=== PATIENT | female | born 2000 | race Caucasian/White ===

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

== ENCOUNTER 2020-06-03 14:14 | Emergency (ER) | payer SELFPAY ==
--- NOTE | 2020-06-03 15:20 | EDM.PDOC ---
ED HPI GENERAL MEDICAL PROBLEM - General Chief Complaint: Skin Complaint Stated Complaint: POSSIBLE GROIN CYST Time Seen by Provider: 06/03/20 15:13 Source of Information: Reports: Patient History Limitations: Reports: No Limitations - History of Present Illness INITIAL COMMENTS - FREE TEXT/NARRATIVE: HISTORY AND PHYSICAL: History of present illness: Patient is a 19-year-old female who presents to the emergency room with complaints of a "bump" to her right groin. She noticed today after getting out of the shower that she had a bump to the right groin that was mobile and mildly tender to touch. Patient denies any fever, chills, headache, change in vision, syncope or near syncope. Denies any chest pain, back pain, shortness of breath or cough. Denies any abdominal pain, nausea, vomiting, diarrhea, constipation or dysuria. Currently on her menstrual period, no concern for . Has not noted any blood in urine or stool. Patient has been eating and drinking vivien ropriately. Review of systems: As per history of present illness and below otherwise all systems reviewed and negative. Past medical history: As per history of present illness and as reviewed below otherwise noncontributory. Surgical history: As per history of present illness and as reviewed below otherwise noncontributory. Social history: See social history for further information Family history: As per history of present illness and as reviewed below otherwise noncontributory. Physical exam: General: Well developed and well nourished. Alert and orientated x 3. Nontoxic in appearance and in no acute distress. Vital signs are stable and have been reviewed by me. Nursing notes were reviewed. HEENT: Atraumatic, normocephalic, pupils equal and reactive bilaterally, negative for conjunctival pallor or scleral icterus, mucous membranes moist, TMs normal bilaterally, throat clear, neck supple, nontender, trachea midline. No drooling or trismus noted. No meningeal signs. No hot potato voice noted. Lungs: Clear to auscultation, breath sounds equal bilaterally, chest nontender. Normal work of breathing, no accessory muscles used. Heart: S1S2, regular rate and rhythm without overt murmur Abdomen: Soft, nondistended, nontender. Singular mildly enlarged lymph node noted to the right groin, skin intact without any erythema or soft tissue swelling or fluctuance. Lymph node is mobile. Skin: Intact, warm, dry. No lesions or rashes noted. Hematologic: No petechiae or purpra. Mucosa appropriate color and normal nail bed color and refill. Extremities: Moves all extremities per self without difficulty or deficits, negative for cords or calf pain. Neurovascular unremarkable. Neuro: Awake, alert, oriented. Cranial nerves II through XII unremarkable. Cerebellum unremarkable. Motor and sensory unremarkable throughout. Exam nonfocal. Psychiatric: Mood and affect are appropriate. Normal thought process. Answering questions appropriately. Notes: *This patient was seen and evaluated during the 2019 SARS-CoV-2 novel coronavirus pandemic period. Community viral transmission is ongoing at time of this encounter and the emergency department is operating under pandemic response procedures. Patient reports that in other than having noticed the enlarged lymph node she is asymptomatic. She has no complaints or concerns. The area in which the lymph node is enlarged has skin that is intact and no concern of infection. At this time I do not feel she needs any diagnostics. I have talked with the patient about today's findings, in addition to providing specific details for plan of care. Reassessment at the time of disposition demonstrates that the patient is in no acute distress. The patient is stable for discharge, counseling was provided and we discussed in great detail signs and symptoms that would prompt them to return to the Emergency Department. Medication, follow up and supportive care measures were reviewed and discussed. Voices understanding and is agreeable to plan of care. Denies any further questions or concerns at this time. Diagnostics: None Therapeutics: None Prescription: None Impression: Lymph node enlargement Plan: 1. You have an enlarged lymph node, which can be a completely normal body response. Continue to monitor the site for redness, fevers, or any other symptoms. 2. You can alternate Tylenol and ibuprofen as needed for pain and fever management. 3. We encourage you to follow up with your primary care provider in the next few days for re-evaluation and further care/management. 4. If your symptoms should worsen, new symptoms develop or any of the signs and symptoms we discussed should arise please return to the emergency room or call 911 (if needed). Definitive disposition and diagnosis as appropriate pending reevaluation and review of above. Right Groin Pain Score (Numeric/FACES): 5 - Related Data Allergies Allergy/AdvReac Type Severity Reaction Status Date / Time No Known Allergies Allergy Verified 06/03/20 14:58 Home Meds: Home Meds . 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 Musculoskeletal History: Reports: None Neurological History: Reports: None Psychiatric History: Reports: None Endocrine/Metabolic History: Reports: None Hematologic History: Reports: None Immunologic History: Reports: None Oncologic (Cancer) History: Reports: None Dermatologic History: Reports: None - Infectious Disease History Infectious Disease History: Reports: None - Past Surgical History Head Surgeries/Procedures: Reports: None HEENT Surgical History: Reports: Oral Surgery Cardiovascular Surgical History: Reports: None Respiratory Surgical History: Reports: None GI Surgical History: Reports: None Female Surgical History: Reports: None Endocrine Surgical History: Reports: None Neurological Surgical History: Reports: None Musculoskeletal Surgical History: Reports: None Oncologic Surgical History: Reports: None Dermatological Surgical History: Reports: None Social & Family History - Family History Family Medical History: No Pertinent Family History - Tobacco Use Tobacco Use Status *Q: Never Tobacco User - Caffeine Use Caffeine Use: Reports: Tea - Recreational Drug Use Recreational Drug Use: Yes Recreational Drug Type: Reports: Marijuana/Hashish ED ROS GENERAL - Review of Systems Review Of Systems: Comprehensive ROS is negative, except as noted in HPI. ED EXAM, SKIN/RASH Exam: See Below (See dictation) Course - Vital Signs Last Recorded V/S: Last Vital Signs Temp 97 F 06/03/20 14:58 Pulse 84 06/03/20 14:58 Resp 16 06/03/20 14:58 BP 118/66 06/03/20 14:58 Pulse Ox 98 06/03/20 14:58 Departure - Departure Time of Disposition: 15:19 Disposition: Home, Self-Care 01 Clinical Impression: Lymph node enlargement - Discharge Information Instructions: Lymphadenopathy Referrals: PCP,None [Primary Care Provider] - Forms: ED Department Discharge Additional Instructions: The following information is given to patients seen in the emergency department who are being discharged to home. This information is to outline your options for follow-up care. We provide all patients seen in our emergency department with a follow-up referral. The need for follow-up, as well as the timing and circumstances, are variable depending upon the specifics of your emergency department visit. If you don't have a primary care physician on staff, we will provide you with a referral. We always advise you to contact your personal physician following an emergency department visit to inform them of the circumstance of the visit and for follow-up with them and/or the need for any referrals to a consulting specia list. The emergency department will also refer you to a specialist when appropriate. This referral assures that you have the opportunity for follow-up care with a specialist. All of these measure are taken in an effort to provide you with optimal care, which includes your follow-up. Under all circumstances we always encourage you to contact your private physician who remains a resource for coordinating your care. When calling for follow-up care, please make the office aware that this follow-up is from your recent emergency room visit. If for any reason you are refused follow-up, please contact the [facility] Emergency Department at and asked to speak to the emergency department charge nurse. [facility] [address] [place] [id number] [address] [address] Thank you for choosing the [facility] emergency department in [place] for your medical needs today. It was a pleasure caring for you. Today you were seen in the emergency department for enlarged lymph node. 1. You have an enlarged lymph node, which can be a completely normal body response. Continue to monitor the site for redness, fevers, or any other symptoms. If the lymph node doesn't resolve in the next week, please have this re-evaluated by your primary care provider. 2. You can alternate Tylenol and ibuprofen as needed for pain and fever management. 3. We encourage you to follow up with your primary care provider in the next few days for re-evaluation and further care/management. 4. If your symptoms should worsen, new symptoms develop or any of the signs and symptoms we discussed should arise please return to the emergency room or call 911 (if needed). Sepsis Event Note (ED) - Evaluation Sepsis Screening Result: No Definite Risk - Focused Exam Vital Signs: Vital Signs Temp Pulse Resp BP Pulse Ox 06/03/20 14:58 97 F 84 16 118/66 98
[2020-06-03 15:27] VITALS: BP 101/62; PULSE 91
== END 2020-06-03 15:26 | disposition home or self-care (01) ==
LOC: MW.ED 14:14
DX: R59.0 Localized enlarged lymph nodes (principal); J45.909 Unspecified asthma, uncomplicated
CPT/HCPCS: 99282; 99283

== ENCOUNTER 2020-07-14 17:37 | Emergency (ER) | payer SELFPAY ==
--- NOTE | 2020-07-14 17:49 | EDM.PDOC ---
<Ac Valdivia - Last Filed: 07/14/20 17:46> ED HPI GENERAL MEDICAL PROBLEM - General Chief Complaint: Neurological Problem Stated Complaint: MIGRAINE Time Seen by Provider: 07/14/20 17:45 Source of Information: Reports: Patient History Limitations: Reports: No Limitations - History of Present Illness INITIAL COMMENTS - FREE TEXT/NARRATIVE: Patient is a 19-year-old female who presents today for left hand numbness and left visual field changes. Patient states symptoms been going on and off the past 2 hours. Patient that she drove here because of thought the symptoms were getting better but they can resolve when she got here. Patient denies any weakness to the arms or legs able to ambulate. Patient did mention a headache in the front after she vomited. Patient denies any back pain urinary symptoms speech or mental status changes. Headache Pain Score (Numeric/FACES): 8 - Related Data Allergies Allergy/AdvReac Type Severity Reaction Status Date / Time No Known Allergies Allergy Verified 07/14/20 17:43 Home Meds: Home Meds . 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 MANAGER History: Reports: None Musculoskeletal History: Reports: None Neurological History: Reports: None Psychiatric History: Reports: None Endocrine/Metabolic History: Reports: None Hematologic History: Reports: None Immunologic History: Reports: None Oncologic (Cancer) History: Reports: None Dermatologic History: Reports: None - Infectious Disease History Infectious Disease History: Reports: None - Past Surgical History Head Surgeries/Procedures: Reports: None HEENT Surgical History: Reports: Oral Surgery Cardiovascular Surgical History: Reports: None Respiratory Surgical History: Reports: None GI Surgical History: Reports: None Female Surgical History: Reports: None Endocrine Surgical History: Reports: None Neurological Surgical History: Reports: None Musculoskeletal Surgical History: Reports: None Oncologic Surgical History: Reports: None Dermatological Surgical History: Reports: None Social & Family History - Family History Family Medical History: No Pertinent Family History - Caffeine Use Caffeine Use: Reports: Tea ED ROS GENERAL - Review of Systems Review Of Systems: See Below Constitutional: Reports: No Symptoms HEENT: Reports: No Symptoms Respiratory: Reports: No Symptoms Cardiovascular: Reports: No Symptoms Endocrine: Reports: No Symptoms GI/Abdominal: Reports: No Symptoms : Reports: No Symptoms Musculoskeletal: Reports: No Symptoms Skin: Reports: No Symptoms Neurological: Reports: Numbness Psychiatric: Reports: No Symptoms Hematologic/Lymphatic: Reports: No Symptoms Immunologic: Reports: No Symptoms ED EXAM, NEURO - Physical Exam Exam: See Below Exam Limited By: No Limitations General Appearance: Alert, WD/WN, No Apparent Distress Eye Exam: Bilateral Eye: EOMI, PERRL Head Exam: Atraumatic Neck: Normal Inspection, Non-Tender, Full Range of Motion Respiratory/Chest: No Respiratory Distress, Lungs Clear Cardiovascular: Normal Peripheral Pulses, Regular Rate, Rhythm GI/Abdominal: Normal Bowel Sounds, Soft, Non-Tender Neurological: Alert, Normal Mood/Affect, Normal Dorsiflexion, CN II-XII Intact, Normal Gait, Oriented x 3 Extremities: Normal Inspection, Normal Range of Motion Departure - Departure Disposition: Home, Self-Care 01 Clinical Impression: Paresthesias Headache Qualifiers: Headache type: other complicated headache syndrome Qualified Code(s): G44.59 - Other complicated headache syndrome Migraine Qualifiers: Migraine type: unspecified Status migrainosus presence: without status migrainosus Intractability: not intractable Qualified Code(s): G43.909 - Migraine, unspecified, not intractable, without status migrainosus - Discharge Information Instructions: Migraine Headache, [id number], General Headache Without Cause, [id number] Referrals: PCP,None [Primary Care Provider] - Forms: ED Department Discharge Additional Instructions: You were seen and evaluated in the ER today for change in peripheral vision, paresthesias, severe headache. Your work-up including a repeat blood tests, CT scan of all been normal. It was felt that your headache and neurological symptoms were secondary to a complex migraine. Please go home and get to sleep. Drink plenty of fluids and call your primary care physician in the morning for reevaluation if your symptoms do not resolve. The following information is given to patients seen in the emergency department who are being discharged to home. This information is to outline your options for follow-up care. We provide all patients seen in our emergency department with a follow-up referral. The need for follow-up, as well as the timing and circumstances, are variable depending upon the specifics of your emergency department visit. If you don't have a primary care physician on staff, we will provide you with a referral. We always advise you to contact your personal physician following an emergency department visit to inform them of the circumstance of the visit and for follow-up with them and/or the need for any referrals to a consulting specialist. The emergency department will also refer you to a specialist when appropriate. This referral assures that you have the opportunity for follow-up care with a specialist. All of these measure are taken in an effort to provide you with optimal care, which includes your follow-up. Under all circumstances we always encourage you to contact your private physician who remains a resource for coordinating your care. When calling for follow-up care, please make the office aware that this follow-up is from your recent emergency room visit. If for any reason you are refused follow-up, please contact the [facility] Emergency Department at and asked to speak to the emergency department charge nurse. [facility] - Primary [facility] [address] [place] [id number] [address] [address] Sepsis Event Note (ED) - Evaluation Sepsis Screening Result: No Definite Risk - Assessment/Plan Plan: Patient is a 19-year-old female presents today for left hand numbness and left visual field changes. Patient has no other neurological deficit on exam constraint will obtain CT head and reassess. <Xavier Salguero - Last Filed: 07/14/20 20:01> ED HPI GENERAL MEDICAL PROBLEM - History of Present Illness INITIAL COMMENTS - FREE TEXT/NARRATIVE: 7 PM: Signout received from Dr. Valdivia at 7 PM. Patient presents with signs and symptoms that were felt to be secondary to complex migraines. Per report, labs and CT scan unremarkable. Does not appear to be consistent with a stroke per Dr. Valdivia. At this time, the current plan of care as verbalized to me by Dr. Valdivia was to reevaluate patient after treatment for her headache and if headache has improved he feels patient will be stable for discharge home. At this time, it was not felt that the patient's presentation was consistent with an acute neurological event stemming from a TIA or stroke. 7:56 PM: Asked to see patient because patient is requesting to sign out AGAINST MEDICAL ADVICE. Patient reevaluated by me. Patient is requesting to be discharged home but still having discomfort in her headache and reports that she has received much relief. After long discussion with the patient, patient reports that she has had migraines in the past but has never had any visual or neurological symptoms with it. Patient reports that the headache started earlier today. Patient denies any recent fevers, shakes, chills,, diarrhea, URI symptoms, cough, cold, congestion, dysuria, frequency, urgency. In the ED, the patient has received Decadron, Reglan, Zofran, Benadryl, Toradol, NSS. Patient will be given a dose of Dilaudid 0.5 mg IV and she is requesting to be discharged home so she can go home and sleep. Patient reports that her neuro findings have been resolved. Patient reports her peripheral vision has come back to baseline as well as her paresthesias. Patient's neurological exam at this time is normal. This patient was seen and evaluated during the 2019 SARS-CoV-2 novel coronavirus pandemic period. Community viral transmission is ongoing at time of this encounter and the emergency department is operating under pandemic response procedures. Constitutional: Patient is oriented to person, place, and time. Appears well- developed and well-nourished. No distress. HEENT: Moist mucous membranes Head: Normocephalic and atraumatic Eyes: Right eye exhibits no discharge. Left eye exhibits no discharge. No scleral icterus Neck: Normal range of motion. No tracheal deviation present. Cardiovascular: Normal rate and regular rhythm. Pulmonary: Effort normal, no respiratory distress. Abdominal: No distention Musculoskeletal: Normal range of motion Neurologic: Alert and oriented to person, place and time. Skin: [place], warm and dry. Psychiatric: Normal mood and affect. Behavior is normal. Judgment and thought content normal. Nursing note and vital signs have been reviewed Neuro: A&Ox3. Cranial nerves II-XII grossly intact, 5/5 strength to bilateral upper and lower extremities, sensation intact to bilateral upper and lower extremities, no nystagmus, PERRLA, EOMI, normal speech, proprioception intact to bilateral lower extremities, normal gait. Reassessment at the time of disposition demonstrates that the patient is in no acute distress. The patient has remained stable throughout the entire ED visit and is without objective evidence for acute process requiring urgent intervention or hospitalization. The patient is stable for discharge, counseling is provided as documented above, discussed symptomatic treatment and specific conditions for return. I have spoken with the patient/caregiver and discussed todays findings, in addition to providing specific details for the plan of care. Questions are answered and there is agreement with the plan. Course - Vital Signs Last Recorded V/S: Last Vital Signs Temp 97.6 F 07/14/20 17:43 Pulse 100 07/14/20 17:43 Resp 18 07/14/20 17:43 BP 136/87 07/14/20 17:43 Pulse Ox 99 07/14/20 17:43 - Orders/Labs/Meds Orders: Active Orders 24 hr Category Date Time Status DRUG SCREEN, URINE [URCHEM] Stat Lab 07/14/20 17:45 Ordered Labs: Laboratory Tests 07/14/20 07/14/20 07/14/20 Range/Units 17:07 17:57 17:57 WBC 14.13 H (4.0-11.0) K/uL RBC 4.87 (4.30-5.90) M/uL Hgb 15.8 (12.0-16.0) g/dL Hct 46.5 H (36.0-46.0) % MCV 95.5 (80.0-98.0) fL MCH 32.4 H (27.0-32.0) pg MCHC 34.0 (31.0-37.0) g/dL RDW Std Deviation 43.3 (28.0-62.0) fl RDW Coeff of Marleny 13 (11.0-15.0) % Plt Count 361 (150-400) K/uL MPV 10.40 (7.40-12.00) fL Neut % (Auto) 71.6 (48.0-80.0) % Lymph % (Auto) 20.0 (16.0-40.0) % Chambers % (Auto) 6.9 (0.0-15.0) % Eos % (Auto) 1.1 (0.0-7.0) % Baso % (Auto) 0.4 (0.0-1.5) % Neut # (Auto) 10.1 H (1.4-5.7) K/uL Lymph # (Auto) 2.8 H (0.6-2.4) K/uL Chambers # (Auto) 1.0 H (0.0-0.8) K/uL Eos # (Auto) 0.2 (0.0-0.7) K/uL Baso # (Auto) 0.1 (0.0-0.1) K/uL Nucleated RBC % 0.0 /100WBC Nucleated RBCs # 0 K/uL INR 1.05 APTT 26.3 (18.6-31.3) SEC Sodium (136-145) mmol/L Potassium (3.5-5.1) mmol/L Chloride (98-107) mmol/L Carbon Dioxide (21.0-32.0) mmol/L BUN (7.0-18.0) mg/dL Creatinine (0.6-1.0) mg/dL Est Cr Clr Drug Dosing mL/min Estimated GFR (MDRD) ml/min Glucose (74-106) mg/dL Calcium (8.5-10.1) mg/dL Phosphorus (2.6-4.7) mg/dL Magnesium (1.8-2.4) mg/dL Total Bilirubin (0.2-1.0) mg/dL AST (15-37) IU/L ALT (14-63) IU/L Alkaline Phosphatase (46-116) U/L Creatine Kinase (26-308) U/L Troponin I (0.000-0.056) ng/mL Total Protein (6.4-8.2) g/dL Albumin (3.4-5.0) g/dL Globulin (2.6-4.0) g/dL Albumin/Globulin Ratio (0.9-1.6) HCG, Qual NEGATIVE (NEG) Ethyl Alcohol mg/dL 07/14/20 Range/Units 17:57 WBC (4.0-11.0) K/uL RBC (4.30-5.90) M/uL Hgb (12.0-16.0) g/dL Hct (36.0-46.0) % MCV (80.0-98.0) fL MCH (27.0-32.0) pg MCHC (31.0-37.0) g/dL RDW Std Deviation (28.0-62.0) fl RDW Coeff of Marleny (11.0-15.0) % Plt Count (150-400) K/uL MPV (7.40-12.00) fL Neut % (Auto) (48.0-80.0) % Lymph % (Auto) (16.0-40.0) % Chambers % (Auto) (0.0-15.0) % Eos % (Auto) (0.0-7.0) % Baso % (Auto) (0.0-1.5) % Neut # (Auto) (1.4-5.7) K/uL Lymph # (Auto) (0.6-2.4) K/uL Chambers # (Auto) (0.0-0.8) K/uL Eos # (Auto) (0.0-0.7) K/uL Baso # (Auto) (0.0-0.1) K/uL Nucleated RBC % /100WBC Nucleated RBCs # K/uL INR APTT (18.6-31.3) SEC Sodium 137 (136-145) mmol/L Potassium 3.6 (3.5-5.1) mmol/L Chloride 101 (98-107) mmol/L Carbon Dioxide 22.9 (21.0-32.0) mmol/L BUN 11 (7.0-18.0) mg/dL Creatinine 0.8 (0.6-1.0) mg/dL Est Cr Clr Drug Dosing 104.42 mL/min Estimated GFR (MDRD) > 60.0 ml/min Glucose 119 H (74-106) mg/dL Calcium 9.2 (8.5-10.1) mg/dL Phosphorus 1.8 L (2.6-4.7) mg/dL Magnesium 1.7 L (1.8-2.4) mg/dL Total Bilirubin 0.6 (0.2-1.0) mg/dL AST 21 (15-37) IU/L ALT 23 (14-63) IU/L Alkaline Phosphatase 70 (46-116) U/L Creatine Kinase 75 (26-308) U/L Troponin I < 0.050 (0.000-0.056) ng/mL Total Protein 7.9 (6.4-8.2) g/dL Albumin 4.4 (3.4-5.0) g/dL Globulin 3.5 (2.6-4.0) g/dL Albumin/Globulin Ratio 1.3 (0.9-1.6) HCG, Qual (NEG) Ethyl Alcohol < 3.0 mg/dL Meds: Medications Discontinued Medications Generic Name Dose Route Start Last Admin Trade Name Marlys PRN Reason Stop Dose Admin Dexamethasone 6 mg 07/14/20 19:22 07/14/20 19:40 Decadron IVPUSH 07/14/20 19:23 6 mg ONETIME ONE Administration Diphenhydramine HCl 25 mg 07/14/20 18:24 07/14/20 18:42 Benadryl IVPUSH 07/14/20 18:25 25 mg ONETIME ONE Administration Diphenhydramine HCl 25 mg 07/14/20 19:22 07/14/20 19:38 Benadryl IVPUSH 07/14/20 19:23 25 mg ONETIME ONE Administration Hydromorphone HCl 0.5 mg 07/14/20 19:56 Dilaudid IVPUSH 07/14/20 19:57 ONETIME ONE Sodium Chloride 1,000 mls @ 1,000 mls/hr 07/14/20 18:25 07/14/20 18:42 Normal Saline IV 07/14/20 19:24 1,000 mls/hr .Bolus ONE Administration Ketorolac Tromethamine 30 mg 07/14/20 19:17 07/14/20 19:26 Toradol IVPUSH 07/14/20 19:18 30 mg ONETIME ONE Administration Metoclopramide HCl 10 mg 07/14/20 18:24 07/14/20 18:46 Reglan IVPUSH 07/14/20 18:25 10 mg ONETIME ONE Administration Ondansetron HCl 4 mg 07/14/20 19:33 07/14/20 19:38 Zofran IVPUSH 07/14/20 19:34 4 mg ONETIME ONE Administration Ondansetron HCl Confirm 07/14/20 19:30 07/14/20 19:38 Zofran Administered 07/14/20 19:31 Not Given Dose 4 mg .ROUTE .STK-MED ONE Departure - Departure Time of Disposition: 19:58 Condition: Good Sepsis Event Note (ED) - Focused Exam Vital Signs: Vital Signs Temp Pulse Resp BP Pulse Ox 07/14/20 17:43 97.6 F 100 18 136/87 99
[2020-07-14] MEDS ORDERED: Metoclopramide 10 MG/2 ML SDV IVPUSH ONE (18:24)
[2020-07-14] MEDS ORDERED: diphenhydrAMINE 50 MG/ML SDV IVPUSH ONE ×2 (18:24→19:22)
[2020-07-14 18:25] LABS: BLOOD UREA NITROGEN,BUN 11 mg/dL (7.0-18.0); CARBON DIOXIDE,CO2 22.9 mmol/L (21.0-32.0); CHLORIDE,CL 101 mmol/L (98-107); GLUCOSE RANDOM 119 mg/dL (74-106); POTASSIUM,K 3.6 mmol/L (3.5-5.1); SODIUM,NA 137 mmol/L (136-145)
[2020-07-14] MEDS ORDERED: Sodium Chloride 0.9% 1,000 ML IV ONE (18:25)
--- NOTE | 2020-07-14 18:30 | CT ---
Indication: Headache left-sided vision changes left numbness Technique: Noncontrast head CT Comparison: No comparison Findings: Axial noncontrast images through the brain parenchyma demonstrates no acute intracranial hemorrhage or mass. No midline shift. No abnormal extra-axial air fluid collections are seen. Visualized paranasal sinuses mastoid air cells, skull and scalp appear unremarkable Impression: No acute intracranial hemorrhage or mass. Please note that all CT scans at this facility use dose modulation, iterative reconstruction, and/or weight-based dosing when appropriate to reduce radiation dose to as low as reasonably achievable. Dictated by Keren Wong MD @ Jul 14 2020 6:27PM Signed by Dr. Keren Wong @ Jul 14 2020 6:29PM
[2020-07-14] MEDS ORDERED: Ketorolac 30 MG/ML SDV IVPUSH ONE (19:17)
[2020-07-14] MEDS ORDERED: Dexamethasone 10 MG/ML SDV IVPUSH ONE (19:22)
[2020-07-14] MEDS ORDERED: Ondansetron 4 MG/2 ML SDV ONE (19:30)
[2020-07-14] MEDS ORDERED: Ondansetron 4 MG/2 ML SDV IVPUSH ONE (19:33)
[2020-07-14] MEDS ORDERED: HYDROmorphone 1 MG/ML Syringe IVPUSH ONE (19:56)
[2020-07-14 20:15] VITALS: BP 110/64; PULSE 72
== END 2020-07-14 20:16 | disposition home or self-care (01) ==
LOC: MW.ED 17:37
DX: G43.909 Migraine, unspecified, not intractable, without status migrainosus (principal); G44.59 Other complicated headache syndrome; R20.2 Paresthesia of skin; J45.909 Unspecified asthma, uncomplicated
CPT/HCPCS: 36415; 70450; 80053; 80179; 82550; 83735; 84100; 84484; 84703; 85025; 85610; 85730; 96374; 96375; 96376; 99284; J1100; J1170; J1200; J1885; J2405; J2765; J7030

== ENCOUNTER 2020-09-23 11:06 | Emergency (ER) | payer SELFPAY ==
--- NOTE | 2020-09-23 11:37 | EDM.PDOC ---
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 She states she had a regular menstrual period approximately 1 month ago. This past 1 week she has had breast tenderness, nausea and started having vaginal bleeding 2 days ago. She reports the vaginal bleeding was much heavier than she is used to in the past. She has not taken any home tests. She is sexually active and not taking any form of control. She denies any vaginal discharge or concerns of STIs. Today the bleeding has stopped and she feels much better, but wants to make sure she's not . Patient denies any fever, chills, headache, change in vision, syncope or near syncope. Denies any chest pain, back pain, shortness of breath or cough. Denies any abdominal pain, nausea, vomiting, diarrhea, constipation or dysuria. Has not noted any blood in urine or stool. Patient has been eating and drinking appropriately. Review of systems: As per history of present illness and below otherwise all systems reviewed and negative. Past medical history: As per history of present illness and as reviewed below otherwise noncontributory. Surgical history: As per history of present illness and as reviewed below otherwise noncontributory. Social history: See social history for further information Family history: As per history of present illness and as reviewed below otherwise nonco ntributory. Physical exam: General: Well developed and well nourished. Alert and orientated x 3. Nontoxic in appearance and in no acute distress. Vital signs are stable and have been reviewed by me. Nursing notes were reviewed. HEENT: Atraumatic, normocephalic, pupils equal and reactive bilaterally, negative for conjunctival pallor or scleral icterus, mucous membranes moist, TMs normal bilaterally, throat clear, neck supple, nontender, trachea midline. No drooling or trismus noted. No meningeal signs. No hot potato voice noted. Lungs: Clear to auscultation bilaterally. No wheezes, rales, or rhonchi. Chest nontender. Normal work of breathing, no accessory muscles used. Heart: S1S2, regular rate and rhythm without overt murmur, gallops, or rubs. No JVD. No peripheral edema Abdomen: Soft, nondistended, nontender. Normoactive bowel sounds. Negative for masses or costovertebral tenderness. Pelvis: Stable nontender. Genitourinary/Rectal: Declines Skin: Intact, warm, dry. No lesions or rashes noted. Hematologic: No petechiae or purpra. Mucosa appropriate color and normal nail bed color and refill. Extremities: Atraumatic, moves all extremities per self without difficulty or deficits, negative for cords or calf pain. Neurovascular unremarkable. Neuro: Awake, alert, oriented. Cranial nerves II through XII unremarkable. Cerebellum unremarkable. Motor and sensory unremarkable throughout. Exam nonfocal. Psychiatric: Mood and affect are appropriate. Normal thought process. Answering questions appropriately. Notes: *This patient was seen and evaluated during the 2019 SARS-CoV-2 novel coronavirus pandemic period. Community viral transmission is ongoing at time of this encounter and the emergency department is operating under pandemic response procedures. Lab work is unremarkable. She currently is asymptomatic and has no vaginal bleeding. I have talked with the patient about today's findings, in addition to providing specific details for plan of care. Reassessment at the time of disposition demonstrates that the patient is in no acute distress. The patient is stable for discharge, counseling was provided and we discussed in great detail signs and symptoms that would prompt them to return to the Emergency Department. Medication, follow up and supportive care measures were reviewed and discussed. Voices understanding and is agreeable to plan of care. Denies any fur ther questions or concerns at this time. Diagnostics: CBC, CMP, UA, HGCU Therapeutics: None Prescription: None Impression: Menorrhagia Plan: 1. You were evaluated today on an emergent basis. Your not . Labs are within normal limits. 2. You can alternate Tylenol and ibuprofen as needed for pain and fever management. 3. We encourage you to follow up with your OBGYN in the next few days for re- evaluation and further care/management. 4. If your symptoms should worsen, new symptoms develop or any of the signs and symptoms we discussed should arise please return to the emergency room or call 911 (if needed). Definitive disposition and diagnosis as appropriate pending reevaluation and review of above. - Related Data Allergies Allergy/AdvReac Type Severity Reaction Status Date / Time No Known Allergies Allergy Verified 07/14/20 17:43 Home Meds: Home Meds . 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 Musculoskeletal History: Reports: None Neurological History: Reports: None Psychiatric History: Reports: None Endocrine/Metabolic History: Reports: None Hematologic History: Reports: None Immunologic History: Reports: None Oncologic (Cancer) History: Reports: None Dermatologic History: Reports: None - Infectious Disease History Infectious Disease History: Reports: None - Past Surgical History Head Surgeries/Procedures: Reports: None HEENT Surgical History: Reports: Oral Surgery Cardiovascular Surgical History: Reports: None Respiratory Surgical History: Reports: None GI Surgical History: Reports: None Female Surgical History: Reports: None Endocrine Surgical History: Reports: None Neurological Surgical History: Reports: None Musculoskeletal Surgical History: Reports: None Oncologic Surgical History: Reports: None Dermatological Surgical History: Reports: None Social & Family History - Family History Family Medical History: No Pertinent Family History - Caffeine Use Caffeine Use: Reports: Tea ED ROS GENERAL - Review of Systems Review Of Systems: Comprehensive ROS is negative, except as noted in HPI. ED EXAM, GENERAL - Physical Exam Exam: See Below (See dictation) Course - Vital Signs Last Recorded V/S: Last Vital Signs Temp 98.4 F 09/23/20 11:23 Pulse 114 H 09/23/20 11:23 Resp 17 09/23/20 11:23 BP 119/73 09/23/20 11:23 Pulse Ox 98 09/23/20 11:23 - Orders/Labs/Meds Labs: Laboratory Tests 09/23/20 09/23/20 09/23/20 Range/Units 11:40 11:40 12:00 WBC 6.37 (4.0-11.0) K/uL RBC 4.64 (4.30-5.90) M/uL Hgb 15.1 (12.0-16.0) g/dL Hct 45.0 (36.0-46.0) % MCV 97.0 (80.0-98.0) fL MCH 32.5 H (27.0-32.0) pg MCHC 33.6 (31.0-37.0) g/dL RDW Std Deviation 42.8 (28.0-62.0) fl RDW Coeff of Marleny 12 (11.0-15.0) % Plt Count 354 (150-400) K/uL MPV 10.10 (7.40-12.00) fL Neut % (Auto) 50.2 (48.0-80.0) % Lymph % (Auto) 36.6 (16.0-40.0) % Mcculloch % (Auto) 8.8 (0.0-15.0) % Eos % (Auto) 3.6 (0.0-7.0) % Baso % (Auto) 0.8 (0.0-1.5) % Neut # (Auto) 3.2 (1.4-5.7) K/uL Lymph # (Auto) 2.3 (0.6-2.4) K/uL Mcculloch # (Auto) 0.6 (0.0-0.8) K/uL Eos # (Auto) 0.2 (0.0-0.7) K/uL Baso # (Auto) 0.1 (0.0-0.1) K/uL Nucleated RBC % 0.0 /100WBC Nucleated RBCs # 0 K/uL Sodium 141 (136-145) mmol/L Potassium 4.0 (3.5-5.1) mmol/L Chloride 106 (98-107) mmol/L Carbon Dioxide 24.3 (21.0-32.0) mmol/L BUN 10 (7.0-18.0) mg/dL Creatinine 0.8 (0.6-1.0) mg/dL Est Cr Clr Drug Dosing 104.42 mL/min Estimated GFR (MDRD) > 60.0 ml/min Glucose 102 (74-106) mg/dL Calcium 8.8 (8.5-10.1) mg/dL Total Bilirubin 0.6 (0.2-1.0) mg/dL AST 18 (15-37) IU/L ALT 19 (14-63) IU/L Alkaline Phosphatase 72 (46-116) U/L Total Protein 7.5 (6.4-8.2) g/dL Albumin 4.0 (3.4-5.0) g/dL Globulin 3.5 (2.6-4.0) g/dL Albumin/Globulin Ratio 1.1 (0.9-1.6) Urine Color YELLOW Urine Appearance CLEAR Urine pH 6.0 (5.0-8.0) Ur Specific Marcus 1.025 (1.001-1.035) Urine Protein NEGATIVE (NEGATIVE) mg/dL Urine Glucose (UA) NEGATIVE (NEGATIVE) mg/dL Urine Ketones NEGATIVE (NEGATIVE) mg/dL Urine Occult Blood NEGATIVE (NEGATIVE) Urine Nitrite NEGATIVE (NEGATIVE) Urine Bilirubin NEGATIVE (NEGATIVE) Urine Urobilinogen 1.0 (<2.0) EU/dL Ur Leukocyte Esterase NEGATIVE (NEGATIVE) Urine HCG, Qual (NEGATIVE) 09/23/20 Range/Units 12:00 WBC (4.0-11.0) K/uL RBC (4.30-5.90) M/uL Hgb (12.0-16.0) g/dL Hct (36.0-46.0) % MCV (80.0-98.0) fL MCH (27.0-32.0) pg MCHC (31.0-37.0) g/dL RDW Std Deviation (28.0-62.0) fl RDW Coeff of Marleny (11.0-15.0) % Plt Count (150-400) K/uL MPV (7.40-12.00) fL Neut % (Auto) (48.0-80.0) % Lymph % (Auto) (16.0-40.0) % Mcculloch % (Auto) (0.0-15.0) % Eos % (Auto) (0.0-7.0) % Baso % (Auto) (0.0-1.5) % Neut # (Auto) (1.4-5.7) K/uL Lymph # (Auto) (0.6-2.4) K/uL Mcculloch # (Auto) (0.0-0.8) K/uL Eos # (Auto) (0.0-0.7) K/uL Baso # (Auto) (0.0-0.1) K/uL Nucleated RBC % /100WBC Nucleated RBCs # K/uL Sodium (136-145) mmol/L Potassium (3.5-5.1) mmol/L Chloride (98-107) mmol/L Carbon Dioxide (21.0-32.0) mmol/L BUN (7.0-18.0) mg/dL Creatinine (0.6-1.0) mg/dL Est Cr Clr Drug Dosing mL/min Estimated GFR (MDRD) ml/min Glucose (74-106) mg/dL Calcium (8.5-10.1) mg/dL Total Bilirubin (0.2-1.0) mg/dL AST (15-37) IU/L ALT (14-63) IU/L Alkaline Phosphatase (46-116) U/L Total Protein (6.4-8.2) g/dL Albumin (3.4-5.0) g/dL Globulin (2.6-4.0) g/dL Albumin/Globulin Ratio (0.9-1.6) Urine Color Urine Appearance Urine pH (5.0-8.0) Ur Specific Marcus (1.001-1.035) Urine Protein (NEGATIVE) mg/dL Urine Glucose (UA) (NEGATIVE) mg/dL Urine Ketones (NEGATIVE) mg/dL Urine Occult Blood (NEGATIVE) Urine Nitrite (NEGATIVE) Urine Bilirubin (NEGATIVE) Urine Urobilinogen (<2.0) EU/dL Ur Leukocyte Esterase (NEGATIVE) Urine HCG, Qual NEGATIVE (NEGATIVE) Departure - Departure Time of Disposition: 12:41 Disposition: Home, Self-Care 01 Clinical Impression: Menorrhagia Qualifiers: Menorrhagia type: with regular cycle Qualified Code(s): N92.0 - Excessive and frequent menstruation with regular cycle - Discharge Information Instructions: Menorrhagia, [id number] Referrals: PCP,None [Primary Care Provider] - Forms: ED Department Discharge Additional Instructions: The following information is given to patients seen in the emergency department who are being discharged to home. This information is to outline your options for follow-up care. We provide all patients seen in our emergency department with a follow-up referral. The need for follow-up, as well as the timing and circumstances, are variable depending upon the specifics of your emergency department visit. If you don't have a primary care physician on staff, we will provide you with a referral. We always advise you to contact your personal physician following an emergency department visit to inform them of the circumstance of the visit and for follow-up with them and/or the need for any referrals to a consulting specialist. The emergency department will also refer you to a specialist when appropriate. This referral assures that you have the opportunity for follow-up care with a specialist. All of these measure are taken in an effort to provide you with optimal care, which includes your follow-up. Under all circumstances we always encourage you to contact your private physician who remains a resource for coordinating your care. When calling for follow-up care, please make the office aware that this follow-up is from your recent emergency room visit. If for any reason you are refused follow-up, please contact the [facility] Emergency Department at and asked to speak to the emergency department charge nurse. [facility] [address] [place] [id number] [place] [address] Thank you for choosing the [facility] emergency department in [place] for your medical needs today. It was a pleasure caring for you. Today you were seen in the emergency department for heavy bleeding. 1. You were evaluated today on an emergent basis. Your not . Labs are within normal limits. 2. You can alternate Tylenol and ibuprofen as needed for pain and fever management. 3. We encourage you to follow up with your OBGYN in the next few days for re- evaluation and further care/management. 4. If your symptoms should worsen, new symptoms develop or any of the signs and symptoms we discussed should arise please return to the emergency room or call 911 (if needed). Sepsis Event Note (ED) - Evaluation Sepsis Screening Result: No Definite Risk - Focused Exam Vital Signs: Vital Signs Temp Pulse Resp BP Pulse Ox 09/23/20 11:23 98.4 F 114 H 17 119/73 98
[2020-09-23 12:23] LABS: BLOOD UREA NITROGEN,BUN 10 mg/dL (7.0-18.0); CARBON DIOXIDE,CO2 24.3 mmol/L (21.0-32.0); CHLORIDE,CL 106 mmol/L (98-107); GLUCOSE RANDOM 102 mg/dL (74-106); SODIUM,NA 141 mmol/L (136-145)
[2020-09-23 12:51] VITALS: BP 105/65; PULSE 104
== END 2020-09-23 12:51 | disposition home or self-care (01) ==
LOC: MW.ED 11:06
DX: N92.0 Excessive and frequent menstruation with regular cycle (principal); J45.909 Unspecified asthma, uncomplicated
CPT/HCPCS: 36415; 80053; 81003; 81025; 85025; 99283; 99284

== ENCOUNTER 2021-01-11 21:06 | Emergency (ER) | payer MEDICAID ==
--- NOTE | 2021-01-11 22:04 | EDM.PDOC ---
ED HPI GENERAL MEDICAL PROBLEM - General Chief Complaint: Respiratory Problem Stated Complaint: LOSS OF TASTE AND SMELL, COUGH, 12 WKS Time Seen by Provider: 01/11/21 21:36 - History of Present Illness INITIAL COMMENTS - FREE TEXT/NARRATIVE: History of present illness: [] This is a 12-week 20-year-old female who is not vaccinated for COVID-19 who has 24 hours of symptoms with cough headache body aches and change in taste. She is not terribly short of breath. She does not have any other significant symptoms. She does not have any significant medical illness. She is not vaccinated. This patient was seen and evaluated during the 2019 SARS-CoV-2 novel coronavirus pandemic period. Community viral transmission is ongoing at time of this encounter and the emergency department is operating under pandemic response procedures. Review of systems: As per history of present illness and below otherwise all systems reviewed and negative. Past medical history: As per history of present illness and as reviewed below otherwise noncontributory. Surgical history: As per history of present illness and as reviewed below otherwise noncontributory. Social history: No reported history of drug or alcohol abuse. Family history: As per history of present illness and as reviewed below otherwise noncontributory. Physical exam: Constitutional - well developed, well-nourished and in no acute distress HEENT - normocephalic, no evidence of trauma - external nose and mouth normal - no mass in neck and no JVD - mucosae moist EYES - full EOM, PERRL, no icterus - no evidence of inflammation, injection, or drainage Respiratory - no respiratory distress, equal bilateral expansion, lungs clear to auscultation and no abnormal lung sounds Cardiovascular - Regular Rhythm with S1 and S2 appreciated and no murmur, gallop or rub. GI - abdomen soft without distension or organomegaly - normal bowel sounds - no guard or rebound Musculoskeletal no gross deformity of long bones or joints - no tenderness, s welling or edema Neurologic - Alert and oriented times four - CN II-XII grossly intact - motor sensory and coordination symmetrically normal Psychiatric - appropriate mood and affect with normal thought content Hematologic - No petechiae or purpura - mucosa appropriate color and sclera not pale - normal nail bed color and refill Integument - no rash or evidence of trauma - normal turgor Diagnostics: [] Therapeutics: [] Impression: [] Plan: [] Definitive disposition and diagnosis as appropriate pending reevaluation and review of above. 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 Musculoskeletal History: Reports: None Neurological History: Reports: None Psychiatric History: Reports: None Endocrine/Metabolic History: Reports: None Hematologic History: Reports: None Immunologic History: Reports: None Oncologic (Cancer) History: Reports: None Dermatologic History: Reports: None - Infectious Disease History Infectious Disease History: Reports: None - Past Surgical History Head Surgeries/Procedures: Reports: None HEENT Surgical History: Reports: Oral Surgery Cardiovascular Surgical History: Reports: None Respiratory Surgical History: Reports: None GI Surgical History: Reports: None Female Surgical History: Reports: None Endocrine Surgical History: Reports: None Neurological Surgical History: Reports: None Musculoskeletal Surgical History: Reports: None Oncologic Surgical History: Reports: None Dermatological Surgical History: Reports: None Social & Family History - Family History Family Medical History: No Pertinent Family History - Caffeine Use Caffeine Use: Reports: Tea ED ROS GENERAL - Review of Systems Review Of Systems: Comprehensive ROS is negative, except as noted in HPI. ED EXAM, GENERAL - Physical Exam Exam: See Below Free Text/Narrative:: My physical exam is in the HPI Course - Vital Signs Last Recorded V/S: Last Vital Signs Temp 36.3 C 01/11/21 21:35 Pulse 96 01/11/21 21:35 Resp 18 01/11/21 21:35 BP 113/59 L 01/11/21 21:35 Pulse Ox 96 01/11/21 21:35 - Orders/Labs/Meds Labs: Laboratory Tests 01/11/21 Range/Units 21:20 SARS-CoV-2 RNA (ZAKI) NEGATIVE (NEGATIVE) Departure - Departure Time of Disposition: 22:35 Disposition: Home, Self-Care 01 Condition: Good Clinical Impression: Viral syndrome - Discharge Information Instructions: Viral Illness, Adult Referrals: PCP,None [Primary Care Provider] - Forms: ED Department Discharge Additional Instructions: [facility] [address] [place] [id number] [facility] [address] [place] [id number] The following information is given to patients seen in the emergency department who are being discharged to home. This information is to outline your options for follow-up care. We provide all patients seen in our emergency department with a follow-up referral. The need for follow-up, as well as the timing and circumstances, are variable depending upon the specifics of your emergency department visit. If you don't have a primary care physician on staff, we will provide you with a referral. We always advise you to contact your personal physician following an emergency department visit to inform them of the circumstance of the visit and for follow-up with them and/or the need for any referrals to a consulting specialist. The emergency department will also refer you to a specialist when appropriate. This referral assures that you have the opportunity for follow-up care with a specialist. All of these measure are taken in an effort to provide you with optimal care, which includes your follow-up. Under all circumstances we always encourage you to contact your private physician who remains a resource for coordinating your care. When calling for follow-up care, please make the office aware that this follow-up is from your recent emergency room visit. If for any reason you are refused follow-up, please contact the [facility] Emergency Department at and asked to speak to the emergency department charge nurse. Sepsis Event Note (ED) - Focused Exam Vital Signs: Vital Signs Temp Pulse Resp BP Pulse Ox 01/11/21 21:35 36.3 C 96 18 113/59 L 96
[2021-01-12 00:16] VITALS: BP 113/64; PULSE 90
== END 2021-01-11 22:45 | disposition home or self-care (01) ==
LOC: MW.ED 21:06
DX: O98.511 Other viral diseases complicating pregnancy, first trimester (principal); B34.9 Viral infection, unspecified; Z20.822 Contact with and (suspected) exposure to COVID-19; Z3A.12 12 weeks gestation of pregnancy
CPT/HCPCS: 99284; U0002

== ENCOUNTER 2021-02-26 12:24 | Emergency (ER) | payer MEDICAID ==
[2021-02-26] MEDS ORDERED: Sodium Chloride 0.9% 10 ML Syringe FLUSH PRN (13:29)
[2021-02-26] MEDS ORDERED: Sodium Chloride 0.9% 1,000 ML IV ONE (13:29)
[2021-02-26] MEDS ORDERED: Sodium Chloride 0.9% 2.5 ML Syringe FLUSH PRN (13:29)
[2021-02-26 13:57] LABS: BLOOD UREA NITROGEN,BUN 5 mg/dL (7.0-18.0); CARBON DIOXIDE,CO2 21.7 mmol/L (21.0-32.0); CHLORIDE,CL 101 mmol/L (98-107); GLUCOSE RANDOM 82 mg/dL (74-106); POTASSIUM,K 3.8 mmol/L (3.5-5.1); SODIUM,NA 135 mmol/L (136-145)
--- NOTE | 2021-02-26 14:37 | EDM.PDOC ---
ED HPI GENERAL MEDICAL PROBLEM - General Chief Complaint: Flank Pain Stated Complaint: STOMACH PAIN Time Seen by Provider: 02/26/21 14:19 - History of Present Illness INITIAL COMMENTS - FREE TEXT/NARRATIVE: History of present illness: [] This patient is just shy at 19 weeks says she has shaking all over and feels weak with body aches. She has flank pain and abdominal pain that is diffuse and constant but not crampy and not labor-like. She is a G1, P0 Ab0. I saw her in December with a viral syndrome. The patient has no other real symptoms. She has been feeling like this for a day or 2. Review of systems: As per history of present illness and below otherwise all systems reviewed and negative. Past medical history: As per history of present illness and as reviewed below otherwise noncontributory. Surgical history: As per history of present illness and as reviewed below otherwise noncontributory. Social history: No reported history of drug or alcohol abuse. Family history: As per history of present illness and as reviewed below otherwise noncontributory. Physical exam: Constitutional - well developed, well-nourished and in no acute distress HEENT - normocephalic, no evidence of trauma - external nose and mouth normal - no mass in neck and no JVD - mucosae moist EYES - full EOM, PERRL, no icterus - no evidence of inflammation, injection, or drainage Respiratory - no respiratory distress, equal bilateral expansion, lungs clear to auscultation and no abnormal lung sounds Cardiovascular - Regular Rhythm with S1 and S2 appreciated and no murmur, gallop or rub. GI - abdomen soft without distension or organomegaly -fundal height consistent with dates- heart tones readily available. Normal bowel sounds - no guard or rebound Musculoskeletal no gross deformity of long bones or joints - no tenderness, swelling or edema Neurologic - Alert and oriented times four - CN II-XII grossly intact - motor sensory and coordination symmetrically normal Psychiatric - appropriate mood and affect with normal thought content Hematologic - No petechiae or purpura - mucosa appropriate color and sclera not pale - normal nail bed color and refill Integument - no rash or evidence of trauma - normal turgor Diagnostics: [] Therapeutics: [] Impression: [] Plan: [] Definitive disposition and diagnosis as appropriate pending reevaluation and review of above. Right Flank Pain Score (Numeric/FACES): 10 - Related Data Allergies Allergy/AdvReac Type Severity Reaction Status Date / Time No Known Allergies Allergy Verified 01/11/21 21:34 Home Meds: Home Meds Pnv No.95/Ferrous Fum/Folic AC [ Multivitamin Tablet] 1 each PO DAILY 01/11/21 [History] Nitrofurantoin Monohyd/M-Cryst [Macrobid 100 mg Capsule] 100 mg PO BID 7 Days #14 capsule 02/26/21 [Rx] Phenazopyridine HCl [Pyridium] 200 mg PO TID PRN 2 Days #6 tablet 02/26/21 [Rx] Past Medical History - Past Health History Medical/Surgical History: Denies Medical/Surgical History HEENT History: Reports: None Cardiovascular History: Reports: None Respiratory History: Reports: Asthma Gastrointestinal History: Reports: None Genitourinary History: Reports: None 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 Musculoskeletal History: Reports: None Neurological History: Reports: None Psychiatric History: Reports: None Endocrine/Metabolic History: Reports: None Insulin Pump Model and Neurosurgery Research Director: None Hematologic History: Reports: None Immunologic History: Reports: None Oncologic (Cancer) History: Reports: None Dermatologic History: Reports: None - Infectious Disease History Infectious Disease History: Reports: None - Past Surgical History Head Surgeries/Procedures: Reports: None HEENT Surgical History: Reports: Oral Surgery Cardiovascular Surgical History: Reports: None Respiratory Surgical History: Reports: None GI Surgical History: Reports: None Female Surgical History: Reports: None Endocrine Surgical History: Reports: None Neurological Surgical History: Reports: None Musculoskeletal Surgical History: Reports: None Oncologic Surgical History: Reports: None Dermatological Surgical History: Reports: None Social & Family History - Family History Family Medical History: No Pertinent Family History - Tobacco Use Tobacco Use Status *Q: Never Tobacco User Second Hand Smoke Exposure: No - Caffeine Use Caffeine Use: Reports: Coffee - Recreational Drug Use Recreational Drug Use: No ED ROS GENERAL - Review of Systems Review Of Systems: Comprehensive ROS is negative, except as noted in HPI. ED EXAM, GENERAL - Physical Exam Exam: See Below Free Text/Narrative:: My physical exam is in the HPI Course - Vital Signs Text/Narrative:: Discussed with the patient's practitioner Pooja Levine and she said to put the patient on Macrobid 100 mg twice a day Pyridium 200 mg 3 times daily 2 days and follow-up in clinic next week Last Recorded V/S: Last Vital Signs Temp 35.9 C L 02/26/21 13:04 Pulse 94 02/26/21 14:55 Resp 18 02/26/21 14:55 BP 106/59 L 02/26/21 14:55 Pulse Ox 100 02/26/21 14:55 - Orders/Labs/Meds Orders: Active Orders 24 hr Category Date Time Status Heart Tones [RC] ASDIRECTED Care 02/26/21 14:18 Active CULTURE URINE [MREF] Stat Lab 02/26/21 15:00 Ordered Sodium Chloride 0.9% [Saline Flush] Med 02/26/21 13:29 Active 10 ml FLUSH ASDIRECTED PRN Sodium Chloride 0.9% [Saline Flush] Med 02/26/21 13:29 Active 2.5 ml FLUSH ASDIRECTED PRN Saline Lock Insert [OM.PC] Stat Oth 02/26/21 13:29 Ordered Medication Orders Sodium Chloride (Sodium Chloride 0.9% 10 Ml Syringe) 10 ml FLUSH ASDIRECTED PRN PRN Reason: Keep Vein Open Last Admin: 02/26/21 14:38 Dose: 10 ml Documented by: MAR Sodium Chloride (Sodium Chloride 0.9% 2.5 Ml Syringe) 2.5 ml FLUSH ASDIRECTED PRN PRN Reason: Keep Vein Open Last Admin: 02/26/21 14:37 Dose: 2.5 ml Documented by: MAR Labs: Laboratory Tests 02/26/21 02/26/21 02/26/21 Range/Units 13:20 13:20 13:20 WBC 11.51 H (4.0-11.0) K/uL RBC 3.95 L (4.30-5.90) M/uL Hgb 12.5 (12.0-16.0) g/dL Hct 36.5 (36.0-46.0) % MCV 92.4 (80.0-98.0) fL MCH 31.6 (27.0-32.0) pg MCHC 34.2 (31.0-37.0) g/dL RDW Std Deviation 42.9 (28.0-62.0) fl RDW Coeff of Marleny 13 (11.0-15.0) % Plt Count 233 (150-400) K/uL MPV 10.20 (7.40-12.00) fL Neut % (Auto) 83.3 H (48.0-80.0) % Lymph % (Auto) 9.4 L (16.0-40.0) % [place] % (Auto) 6.6 (0.0-15.0) % Eos % (Auto) 0.5 (0.0-7.0) % Baso % (Auto) 0.2 (0.0-1.5) % Neut # (Auto) 9.6 H (1.4-5.7) K/uL Lymph # (Auto) 1.1 (0.6-2.4) K/uL [place] # (Auto) 0.8 (0.0-0.8) K/uL Eos # (Auto) 0.1 (0.0-0.7) K/uL Baso # (Auto) 0.0 (0.0-0.1) K/uL Nucleated RBC % 0.0 /100WBC Nucleated RBCs # 0 K/uL Sodium 135 L (136-145) mmol/L Potassium 3.8 (3.5-5.1) mmol/L Chloride 101 (98-107) mmol/L Carbon Dioxide 21.7 (21.0-32.0) mmol/L BUN 5 L (7.0-18.0) mg/dL Creatinine 0.5 L (0.6-1.0) mg/dL Est Cr Clr Drug Dosing 160.15 mL/min Estimated GFR (MDRD) > 60.0 ml/min Glucose 82 (74-106) mg/dL Calcium 8.9 (8.5-10.1) mg/dL Total Bilirubin 0.6 (0.2-1.0) mg/dL AST 29 (15-37) IU/L ALT 25 (14-63) IU/L Alkaline Phosphatase 64 (46-116) U/L Total Protein 6.6 (6.4-8.2) g/dL Albumin 3.3 L (3.4-5.0) g/dL Globulin 3.3 (2.6-4.0) g/dL Albumin/Globulin Ratio 1.0 (0.9-1.6) Lipase 58 L (73-393) U/L Urine Color Urine Appearance Urine pH (5.0-8.0) Ur Specific [place] (1.001-1.035) Urine Protein (NEGATIVE) mg/dL Urine Glucose (UA) (NEGATIVE) mg/dL Urine Ketones (NEGATIVE) mg/dL Urine Occult Blood (NEGATIVE) Urine Nitrite (NEGATIVE) Urine Bilirubin (NEGATIVE) Urine Urobilinogen (<2.0) EU/dL Ur Leukocyte Esterase (NEGATIVE) Urine RBC (0-2/HPF) Urine WBC (0-5/HPF) Ur Epithelial Cells (NONE-FEW) Urine Bacteria (NEGATIVE) 02/26/21 Range/Units 14:20 WBC (4.0-11.0) K/uL RBC (4.30-5.90) M/uL Hgb (12.0-16.0) g/dL Hct (36.0-46.0) % MCV (80.0-98.0) fL MCH (27.0-32.0) pg MCHC (31.0-37.0) g/dL RDW Std Deviation (28.0-62.0) fl RDW Coeff of Marleny (11.0-15.0) % Plt Count (150-400) K/uL MPV (7.40-12.00) fL Neut % (Auto) (48.0-80.0) % Lymph % (Auto) (16.0-40.0) % [place] % (Auto) (0.0-15.0) % Eos % (Auto) (0.0-7.0) % Baso % (Auto) (0.0-1.5) % Neut # (Auto) (1.4-5.7) K/uL Lymph # (Auto) (0.6-2.4) K/uL [place] # (Auto) (0.0-0.8) K/uL Eos # (Auto) (0.0-0.7) K/uL Baso # (Auto) (0.0-0.1) K/uL Nucleated RBC % /100WBC Nucleated RBCs # K/uL Sodium (136-145) mmol/L Potassium (3.5-5.1) mmol/L Chloride (98-107) mmol/L Carbon Dioxide (21.0-32.0) mmol/L BUN (7.0-18.0) mg/dL Creatinine (0.6-1.0) mg/dL Est Cr Clr Drug Dosing mL/min Estimated GFR (MDRD) ml/min Glucose (74-106) mg/dL Calcium (8.5-10.1) mg/dL Total Bilirubin (0.2-1.0) mg/dL AST (15-37) IU/L ALT (14-63) IU/L Alkaline Phosphatase (46-116) U/L Total Protein (6.4-8.2) g/dL Albumin (3.4-5.0) g/dL Globulin (2.6-4.0) g/dL Albumin/Globulin Ratio (0.9-1.6) Lipase (73-393) U/L Urine Color YELLOW Urine Appearance CLOUDY Urine pH 7.5 (5.0-8.0) Ur Specific [place] 1.020 (1.001-1.035) Urine Protein 30 H (NEGATIVE) mg/dL Urine Glucose (UA) NEGATIVE (NEGATIVE) mg/dL Urine Ketones 40 H (NEGATIVE) mg/dL Urine Occult Blood LARGE H (NEGATIVE) Urine Nitrite NEGATIVE (NEGATIVE) Urine Bilirubin NEGATIVE (NEGATIVE) Urine Urobilinogen 1.0 (<2.0) EU/dL Ur Leukocyte Esterase MODERATE H (NEGATIVE) Urine RBC 10-15 (0-2/HPF) Urine WBC 30-40 (0-5/HPF) Ur Epithelial Cells MODERATE (NONE-FEW) Urine Bacteria 2+ H (NEGATIVE) Meds: Medications Generic Name Dose Route Start Last Admin Trade Name Freq PRN Reason Stop Dose Admin Sodium Chloride 10 ml 02/26/21 13:29 02/26/21 14:38 Sodium Chloride 0.9% 10 Ml Syringe FLUSH 10 ml ASDIRECTED PRN Administration Keep Vein Open Sodium Chloride 2.5 ml 02/26/21 13:29 02/26/21 14:37 Sodium Chloride 0.9% 2.5 Ml Syringe FLUSH 2.5 ml ASDIRECTED PRN Administration Keep Vein Open Discontinued Medications Generic Name Dose Route Start Last Admin Trade Name Freq PRN Reason Stop Dose Admin Sodium Chloride 1,000 mls @ 999 mls/hr 02/26/21 13:29 02/26/21 14:37 Normal Saline IV 02/26/21 14:29 999 mls/hr BOLUS ONE Administration Departure - Departure Time of Disposition: 15:30 Disposition: Home, Self-Care 01 Condition: Good Clinical Impression: UTI, Urinary tract infectious disease - Discharge Information Instructions: Urinary Tract Infection, Adult Referrals: Luna Guajardo [Primary Care Provider] - Forms: ED Department Discharge Additional Instructions: Your practitioner wants you to drink at least a liter of fluid every day. Prescriptions were sent for Macrodantin and Pyridium. You need to follow-up early next week. Herbie Carrasco - [facility]'s [address] [address] The following information is given to patients seen in the emergency department who are being discharged to home. This information is to outline your options for follow-up care. We provide all patients seen in our emergency department with a follow-up referral. The need for follow-up, as well as the timing and circumstances, are variable depending upon the specifics of your emergency department visit. If you don't have a primary care physician on staff, we will provide you with a referral. We always advise you to contact your personal physician following an emergency department visit to inform them of the circumstance of the visit and for follow-up with them and/or the need for any referrals to a consulting specialist. The emergency department will also refer you to a specialist when appropriate. This referral assures that you have the opportunity for follow-up care with a specialist. All of these measure are taken in an effort to provide you with optimal care, which includes your follow-up. Under all circumstances we always encourage you to contact your private physician who remains a resource for coordinating your care. When calling for follow-up care, please make the office aware that this follow-up is from your recent emergency room visit. If for any reason you are refused follow-up, please contact the [facility] Emergency Department at and asked to speak to the emergency department charge nurse. Sepsis Event Note (ED) - Focused Exam Vital Signs: Vital Signs Temp Pulse Resp BP Pulse Ox 02/26/21 14:55 94 18 106/59 L 100 02/26/21 13:04 35.9 C L 98 15 114/59 L 98 - My Orders Last 24 Hours: My Active Orders 02/26/21 14:18 Heart Tones [RC] ASDIRECTED 02/26/21 15:00 CULTURE URINE [MREF] Stat - Assessment/Plan Last 24 Hours: My Active Orders 02/26/21 14:18 Heart Tones [RC] ASDIRECTED 02/26/21 15:00 CULTURE URINE [MREF] Stat
[2021-02-26 14:56] VITALS: BP 106/59; PULSE 94
== END 2021-02-26 15:48 | disposition home or self-care (01) ==
LOC: MW.ED 12:24
DX: O23.42 Unspecified infection of urinary tract in pregnancy, second trimester (principal); O99.512 Diseases of the respiratory system complicating pregnancy, second trimester; J45.909 Unspecified asthma, uncomplicated; Z3A.19 19 weeks gestation of pregnancy
CPT/HCPCS: 36415; 80053; 81001; 83690; 85025; 87086; 87088; 87186; 99284; J7030

== ENCOUNTER 2021-02-26 20:39 | Inpatient (IN) | payer MEDICAID ==
--- NOTE | 2021-02-26 23:22 | US ---
INDICATION: Right upper quadrant pain TECHNIQUE: Ultrasound abdomen limited. Sonographic images of the right upper quadrant were obtained using vaughn-scale and color Doppler images. COMPARISON: None FINDINGS: Liver: Normal in size and echotexture. No masses. No intrahepatic biliary dilatation. Gallbladder: No stones or sludge. Normal wall thickness. No pericholecystic fluid. Sonographic Beck`s sign is negative Common bile duct: 3 mm. Pancreas: Normal. Right kidney: 12.4 x 5.1 x 5.6 cm. Normal echotexture and cortex. No masses, stones, or hydronephrosis. Vasculature: Proximal abdominal aorta and IVC are normal. IMPRESSION: Unremarkable right upper quadrant ultrasound. Dictated by Vivienne Saleh MD @ 02/26/2021 11:21:39 PM (Electronically Signed)
--- NOTE | 2021-02-26 23:27 | US ---
INDICATION: Abdominal pain, 19 weeks 0 days gestation TECHNIQUE: Ultrasound OB pelvis transabdominal. Real-time vaughn-scale imaging of the fetus was performed. COMPARISON: None FINDINGS: Sonographic imaging demonstrates a single living intrauterine gestation. Fetus demonstrates a regular cardiac rate of 163-172 beats per minute. Fetus has a cephalic orientation. The placenta lies posterior without evidence of placenta previa or abruption. Amniotic fluid volume appears normal. Single deepest vertical pocket: 3.3 cm. Cervical length is 3.3 cm. The composite ultrasound gestational age is calculated at 19 weeks 1 day with an estimated sonographic due date of July 19, 2021. The estimated weight is 294 grams which lies at the 73 %. The following biometric measurements were obtained: Biparietal diameter: 4.43 cm/19 weeks 3 days Head circumference: 16.5 cm/19 weeks 2 days Abdominal circumference: 13.9 cm/19 weeks 3 days Femur length: 3.1 cm/19 weeks 5 days On anatomic survey, there is a normal appearance of the cerebral ventricles, cisterna magna and cerebellum. The nose, lips, and facial profile appear normal. The cervical, thoracic and lumbar spines are well visualized and appear normal. There is a normal four-chamber heart and the left and right ventricular outflow tracts appear normal. diaphragm, stomach, kidneys and bladder appear normal. There is a normal three-vessel cord and cord insertion site. The four extremities appear normal. IMPRESSION: 1.Single viable intrauterine . 2.No intrinsic abnormalities noted on anatomic survey. 3. No evidence for placental abruption. Dictated by Vivienne Saleh MD @ 02/26/2021 11:25:47 PM (Electronically Signed)
[2021-02-26] MEDS ORDERED: Morphine 4 MG/ML Syringe IVPUSH ONE (23:44)
[2021-02-26] MEDS ORDERED: Ondansetron 4 MG/2 ML SDV IVPUSH ONE (23:44)
[2021-02-26] MEDS ORDERED: Lactated Ringers 1,000 ML IV ONE (23:44)
--- NOTE | 2021-02-26 23:44 | EDM.PDOC ---
ED HPI GENERAL MEDICAL PROBLEM - General Chief Complaint: Abdominal Pain Stated Complaint: 19 WEEKS , POSSIBLE GALLSTONES Time Seen by Provider: 02/26/21 22:44 Source of Information: Reports: Patient History Limitations: Reports: No Limitations - History of Present Illness INITIAL COMMENTS - FREE TEXT/NARRATIVE: 20-year-old female GA 19 weeks and 4 days presents with right upper quadrant pain this morning. Pain is described as sharp cramping sensation rated 9/10, gradual onset progressive worsening, with radiation from the right upper quadrant to the right upper flank. She admits to fever of 103.5 prior to arrival, chills, nausea and diarrhea but denies vomiting, dysuria, hematuria, vaginal bleeding. Last time she ate was at 8 PM. Her CALL CENTER NURSE is Pooja Levine ROS: A 10-point review of systems, other than pertinent positives and negatives as stated per HPI, is otherwise negative Past medical history: No additional pertinent history Past Surgical history: No additional pertinent history Social history: No additional pertinent history Family history: No additional pertinent history PHYSICAL EXAM General: AOx4, GCS = 15, mild distress HEENT: dry mucous membrane Neck: supple, no meningismus, no Kernig or Brudzinski Cardiac: S1S2 RRR Respiratory: CTAB, no crackles or rales, no wheezing Abdomen: Soft, RUQ ttp, no rebound or guarding, nondistended, no pulsatile mass. Back: nontender Musculoskeletal: NVI distally, no deformity Neuro: No focal deficits, CN 2 - 12 WNL. Back Pain Score (Numeric/FACES): 8 - Related Data Allergies Allergy/AdvReac Type Severity Reaction Status Date / Time No Known Allergies Allergy Verified 02/26/21 22:45 Home Meds: Home Meds Pnv No.95/Ferrous Fum/Folic AC [ Multivitamin Tablet] 1 each PO DAILY 01/11/21 [History] Nitrofurantoin Monohyd/M-Cryst [Macrobid 100 mg Capsule] 100 mg PO BID 7 Days #14 capsule 10/08/21 [Rx] Phenazopyridine HCl [Pyridium] 200 mg PO TID PRN 2 Days #6 tablet 02/26/21 [Rx] Past Medical History - Past Health History Medical/Surgical History: Denies Medical/Surgical History HEENT History: Reports: None Cardiovascular History: Reports: None Respiratory History: Reports: Asthma Gastrointestinal History: Reports: None Genitourinary History: Reports: None CALL CENTER NURSE History: Reports: Other CALL CENTER NURSE History: 19 weeks Musculoskeletal History: Reports: None Neurological History: Reports: None Psychiatric History: Reports: None Endocrine/Metabolic History: Reports: None Insulin Pump Model and Conventional Underwriter: None Hematologic History: Reports: None Immunologic History: Reports: None Oncologic (Cancer) History: Reports: None Dermatologic History: Reports: None - Infectious Disease History Infectious Disease History: Reports: None - Past Surgical History Head Surgeries/Procedures: Reports: None HEENT Surgical History: Reports: Oral Surgery Cardiovascular Surgical History: Reports: None Respiratory Surgical History: Reports: None GI Surgical History: Reports: None Female Surgical History: Reports: None Endocrine Surgical History: Reports: None Neurological Surgical History: Reports: None Musculoskeletal Surgical History: Reports: None Oncologic Surgical History: Reports: None Dermatological Surgical History: Reports: None Social & Family History - Family History Family Medical History: No Pertinent Family History - Tobacco Use Tobacco Use Status *Q: Never Tobacco User - Caffeine Use Caffeine Use: Reports: Coffee - Recreational Drug Use Recreational Drug Use: No ED ROS GENERAL - Review of Systems Review Of Systems: See Below (see dictation) ED EXAM, GI/ABD - Physical Exam Exam: See Below (see dictation) Course - Vital Signs Last Recorded V/S: Last Vital Signs Temp 100.3 F 02/27/21 01:05 Pulse 115 H 02/27/21 01:47 Resp 16 02/26/21 22:47 BP 111/50 L 02/27/21 01:47 Pulse Ox 100 02/27/21 01:08 - Orders/Labs/Meds Orders: Active Orders 24 hr Category Date Time Status Patient Status [ADT] Routine ADT 02/27/21 01:47 Active Vital Signs [RC] Q1H Care 02/27/21 01:02 Active CORONAVIRUS COVID-19 ZAKI [MOLEC] Stat Lab 02/27/21 01:05 Received LACTATE SEPSIS W/ REFLEX [CHEM] Stat Lab 02/27/21 01:46 Ordered Sodium Chloride 0.9% [Normal Saline] 1,000 ml Med 02/27/21 00:57 Active IV NOW Sodium Chloride 0.9% [Saline Flush] Med 02/26/21 21:24 Active 10 ml FLUSH ASDIRECTED PRN Sodium Chloride 0.9% [Saline Flush] Med 02/26/21 21:24 Active 2.5 ml FLUSH ASDIRECTED PRN Saline Lock Insert [OM.PC] Stat Oth 02/26/21 21:25 Ordered Medication Orders Sodium Chloride (Normal Saline) 1,000 mls @ 999 mls/hr IV NOW STA Stop: 02/27/21 01:57 Last Admin: 02/27/21 00:58 Dose: 999 mls/hr Documented by: LONG Sodium Chloride (Sodium Chloride 0.9% 10 Ml Syringe) 10 ml FLUSH ASDIRECTED PRN PRN Reason: Keep Vein Open Last Admin: 02/27/21 00:49 Dose: 10 ml Documented by: Admin: 02/27/21 00:04 Dose: 10 ml Documented by: LONG Sodium Chloride (Sodium Chloride 0.9% 2.5 Ml Syringe) 2.5 ml FLUSH ASDIRECTED PRN PRN Reason: Keep Vein Open Last Admin: 02/27/21 00:49 Dose: 2.5 ml Documented by: Admin: 02/27/21 00:03 Dose: 2.5 ml Documented by: LONG Labs: Laboratory Tests 02/26/21 02/26/21 02/26/21 Range/Units 23:11 23:11 23:19 WBC 14.83 H (4.0-11.0) K/uL RBC 3.85 L (4.30-5.90) M/uL Hgb 12.2 (12.0-16.0) g/dL Hct 35.6 L (36.0-46.0) % MCV 92.5 (80.0-98.0) fL MCH 31.7 (27.0-32.0) pg MCHC 34.3 (31.0-37.0) g/dL RDW Std Deviation 42.7 (28.0-62.0) fl RDW Coeff of Marleny 13 (11.0-15.0) % Plt Count 228 (150-400) K/uL MPV 10.20 (7.40-12.00) fL Neut % (Auto) 85.6 H (48.0-80.0) % Lymph % (Auto) 6.2 L (16.0-40.0) % [place] % (Auto) 8.0 (0.0-15.0) % Eos % (Auto) 0.1 (0.0-7.0) % Baso % (Auto) 0.1 (0.0-1.5) % Neut # (Auto) 12.7 H (1.4-5.7) K/uL Lymph # (Auto) 0.9 (0.6-2.4) K/uL [place] # (Auto) 1.2 H (0.0-0.8) K/uL Eos # (Auto) 0.0 (0.0-0.7) K/uL Baso # (Auto) 0.0 (0.0-0.1) K/uL Nucleated RBC % 0.0 /100WBC Nucleated RBCs # 0 K/uL Sodium 133 L (136-145) mmol/L Potassium 3.7 (3.5-5.1) mmol/L Chloride 99 (98-107) mmol/L Carbon Dioxide 18.1 L (21.0-32.0) mmol/L BUN 5 L (7.0-18.0) mg/dL Creatinine 0.6 (0.6-1.0) mg/dL Est Cr Clr Drug Dosing 133.46 mL/min Estimated GFR (MDRD) > 60.0 ml/min Glucose 80 (74-106) mg/dL Calcium 8.4 L (8.5-10.1) mg/dL Total Bilirubin 0.8 (0.2-1.0) mg/dL AST 30 (15-37) IU/L ALT 23 (14-63) IU/L Alkaline Phosphatase 65 (46-116) U/L Total Protein 6.5 (6.4-8.2) g/dL Albumin 3.2 L (3.4-5.0) g/dL Globulin 3.3 (2.6-4.0) g/dL Albumin/Globulin Ratio 1.0 (0.9-1.6) Lipase 72 L (73-393) U/L Urine Color YELLOW Urine Appearance SLT CLOUDY Urine pH 6.5 (5.0-8.0) Ur Specific [place] 1.025 (1.001-1.035) Urine Protein NEGATIVE (NEGATIVE) mg/dL Urine Glucose (UA) NEGATIVE (NEGATIVE) mg/dL Urine Ketones >=80 (NEGATIVE) mg/dL Urine Occult Blood TRACE-INTACT H (NEGATIVE) Urine Nitrite POSITIVE H (NEGATIVE) Urine Bilirubin NEGATIVE (NEGATIVE) Urine Urobilinogen 0.2 (<2.0) EU/dL Ur Leukocyte Esterase SMALL H (NEGATIVE) Urine RBC 1-3 (0-2/HPF) Urine WBC 12-15 (0-5/HPF) Ur Epithelial Cells RARE (NONE-FEW) Urine Bacteria 2+ H (NEGATIVE) Meds: Medications Generic Name Dose Route Start Last Admin Trade Name Marlys PRN Reason Stop Dose Admin Sodium Chloride 1,000 mls @ 999 mls/hr 02/27/21 00:57 02/27/21 00:58 Normal Saline IV 02/27/21 01:57 999 mls/hr NOW STA Administration Sodium Chloride 10 ml 02/26/21 21:24 02/27/21 00:49 Sodium Chloride 0.9% 10 Ml Syringe FLUSH 10 ml ASDIRECTED PRN Administration Keep Vein Open Sodium Chloride 2.5 ml 02/26/21 21:24 02/27/21 00:49 Sodium Chloride 0.9% 2.5 Ml Syringe FLUSH 2.5 ml ASDIRECTED PRN Administration Keep Vein Open Discontinued Medications Generic Name Dose Route Start Last Admin Trade Name Marlys PRN Reason Stop Dose Admin Acetaminophen 1,000 mg 02/27/21 01:00 02/27/21 01:05 Acetaminophen 500 Mg Tab PO 02/27/21 01:01 1,000 mg ONETIME ONE Administration Ceftriaxone Sodium 1 gm 02/27/21 00:28 02/27/21 00:42 Ceftriaxone 1 Gm Vial IVPUSH 02/27/21 00:29 Not Given ONETIME ONE Lactated Ringer's 1,000 mls @ 999 mls/hr 02/26/21 23:44 02/26/21 23:59 Ringers, Lactated IV 02/27/21 00:44 999 mls/hr .BOLUS ONE Administration Ceftriaxone Sodium/Dextrose 1 50 mls @ 100 mls/hr 02/27/21 00:41 02/27/21 00:49 gm/ Premix IV 02/27/21 01:10 100 mls/hr ONETIME ONE Administration Morphine Sulfate 4 mg 02/26/21 23:44 02/26/21 23:59 Morphine 4 Mg/Ml Syringe IVPUSH 02/26/21 23:45 4 mg ONETIME ONE Administration Ondansetron HCl 4 mg 02/26/21 23:44 02/26/21 23:59 Ondansetron 4 Mg/2 Ml Sdv IVPUSH 02/26/21 23:45 4 mg ONETIME ONE Administration - Re-Assessments/Exams Free Text/Narrative Re-Assessment/Exam: 02/27/21 01:[address] Palacios, who agrees to admit patient. The hospitalist's documentation supersedes all other documentation on this patient with regard to any conflicts or discrepancies from this point forward. Any emergency conditions have been treated to the ability of the ED prior to admission. Departure - Departure Time of Disposition: 01:50 Disposition: Admitted As Inpatient 65 Condition: Good Clinical Impression: Flank pain, Pyelonephritis, Sepsis, Second trimester - Discharge Information *PRESCRIPTION DRUG MONITORING PROGRAM REVIEWED*: Not Applicable *COPY OF PRESCRIPTION DRUG MONITORING REPORT IN PATIENT MAXIMILIANO: Not Applicable Instructions: Pyelonephritis During Referrals: Dandy Velásquez MD [Primary Care Provider] - Forms: ED Department Discharge Critical Care Note - Critical Care Note Comments: CRITCAL CARE: The high probability of sudden, clinically significant deterioration in the patient's condition required the highest level of my preparedness to intervene urgently. The services I provided to this patient were to treat and/or prevent clinically significant deterioration. Services included the following: chart data review, reviewing nursing notes and/or old charts, documentation time, technical services consultant collaboration regarding findings and treatment options, medication orders and management, direct patient care, vital sign assessments and ordering, interpreting and reviewing diagnostic studies/lab tests. Aggregate critical care time includes only time during which I was engaged in work directly related to the patient's care, as described above, whether at the bedside or elsewhere in the Emergency Department. It did not include time spent performing other reported procedures or the services of residents, students, nurses or physician assistants. Frequent interventions and/or frequent repeat evaluations were required as well as counseling and coordination of care r egarding prognosis, treatments, and discussions with patient, staff and consultants. Critical Care (excluding other procedures): 40 minutes Sepsis Event Note (ED) - Evaluation Sepsis Screening Result: No Definite Risk - Focused Exam Vital Signs: Vital Signs Temp Temp Temp Pulse Resp BP Pulse Ox 02/27/21 01:47 115 H 111/50 L 02/27/21 01:08 110 H 107/47 L 100 02/27/21 01:05 100.3 F 02/27/21 01:02 106 H 107/47 L 100 02/27/21 00:59 116 H 02/27/21 00:58 100/40 L 02/27/21 00:56 100.3 F 106 H 95/29 L 99 02/27/21 00:05 108 H 84/30 L 96 02/26/21 23:21 81 114/47 L 100 02/26/21 22:47 97.5 F 95 16 111/50 L - My Orders Last 24 Hours: My Active Orders 02/26/21 21:24 Sodium Chloride 0.9% [Saline Flush] 10 ml FLUSH ASDIRECTED PRN Sodium Chloride 0.9% [Saline Flush] 2.5 ml FLUSH ASDIRECTED PRN 02/26/21 21:25 Saline Lock Insert [OM.PC] Stat 02/27/21 00:57 Sodium Chloride 0.9% [Normal Saline] 1,000 ml IV NOW 02/27/21 01:02 Vital Signs [RC] Q1H 02/27/21 01:05 CORONAVIRUS COVID-19 ZAKI [MOLEC] Stat 02/27/21 01:46 LACTATE SEPSIS W/ REFLEX [CHEM] Stat 02/27/21 01:47 Patient Status [ADT] Routine - Assessment/Plan Last 24 Hours: My Active Orders 02/26/21 21:24 Sodium Chloride 0.9% [Saline Flush] 10 ml FLUSH ASDIRECTED PRN Sodium Chloride 0.9% [Saline Flush] 2.5 ml FLUSH ASDIRECTED PRN 02/26/21 21:25 Saline Lock Insert [OM.PC] Stat 02/27/21 00:57 Sodium Chloride 0.9% [Normal Saline] 1,000 ml IV NOW 02/27/21 01:02 Vital Signs [RC] Q1H 02/27/21 01:05 CORONAVIRUS COVID-19 ZAKI [MOLEC] Stat 02/27/21 01:46 LACTATE SEPSIS W/ REFLEX [CHEM] Stat 02/27/21 01:47 Patient Status [ADT] Routine
[2021-02-26 23:56] LABS: BLOOD UREA NITROGEN,BUN 5 mg/dL (7.0-18.0); CARBON DIOXIDE,CO2 18.1 mmol/L (21.0-32.0); CHLORIDE,CL 99 mmol/L (98-107); GLUCOSE RANDOM 80 mg/dL (74-106); LIPASE 72 U/L (73-393); POTASSIUM,K 3.7 mmol/L (3.5-5.1); SODIUM,NA 133 mmol/L (136-145)
[2021-02-27] MEDS: Sodium Chloride 0.9% 2.5 ML Syringe FLUSH PRN ×2 (00:03→00:49)
[2021-02-27] MEDS: Sodium Chloride 0.9% 10 ML Syringe FLUSH PRN ×2 (00:04→00:49)
[2021-02-27] MEDS ORDERED: cefTRIAXone 1 GM Vial IVPUSH ONE (00:28)
[2021-02-27] MEDS ORDERED: cefTRIAXone 1 GM in Premix Bag 1 BAG IV ONE (00:41)
[2021-02-27] MEDS ORDERED: Sodium Chloride 0.9% 1,000 ML IV STA ×3 (00:57→03:15)
[2021-02-27] MEDS ORDERED: Acetaminophen 500 MG Tab PO ONE (01:00)
[2021-02-27] MEDS ORDERED: Lactated Ringers 1,000 ML IV SCH (03:45)
[2021-02-27] MEDS: ceFAZolin 1 GM in Premix Bag 1 BAG IV SCH ×4 (03:59→20:46)
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
[2021-02-27] MEDS ORDERED: Ondansetron 4 MG/2 ML SDV IVPUSH PRN (05:29)
[2021-02-27] MEDS ORDERED: Morphine 2 MG/ML SYRINGE IVPUSH PRN (05:29)
[2021-02-27] MEDS ORDERED: Phenazopyridine 200 MG Tab PO SCH (06:00)
[2021-02-27] MEDS: Acetaminophen 500 MG Tab PO PRN ×3 (09:18→23:27)
[2021-02-27] MEDS: Phenazopyridine 200 MG Tab PO SCH ×3 (09:18→19:31)
[2021-02-27] MEDS: Lactated Ringers 1,000 ML IV SCH ×2 (10:47→20:43)
[2021-02-27 16:07] LABS: BLOOD UREA NITROGEN,BUN 5 mg/dL (7.0-18.0); CARBON DIOXIDE,CO2 22.7 mmol/L (21.0-32.0); CHLORIDE,CL 105 mmol/L (98-107); GLUCOSE RANDOM 108 mg/dL (74-106); POTASSIUM,K 3.7 mmol/L (3.5-5.1); SODIUM,NA 140 mmol/L (136-145)
[2021-02-28] MEDS: ceFAZolin 1 GM in Premix Bag 1 BAG IV SCH ×2 (03:45→09:32)
[2021-02-28] MEDS: Lactated Ringers 1,000 ML IV SCH (04:56)
[2021-02-28 07:08] LABS: BLOOD UREA NITROGEN,BUN 2 mg/dL (7.0-18.0); CARBON DIOXIDE,CO2 24.9 mmol/L (21.0-32.0); CHLORIDE,CL 105 mmol/L (98-107); GLUCOSE RANDOM 92 mg/dL (74-106); POTASSIUM,K 3.3 mmol/L (3.5-5.1); SODIUM,NA 139 mmol/L (136-145)
[2021-02-28] MEDS: Phenazopyridine 200 MG Tab PO SCH ×2 (10:33→12:39)
[2021-02-28] MEDS: Acetaminophen 500 MG Tab PO PRN (10:39)
--- NOTE | 2021-02-28 11:31 | PCM.PN ---
- General Info Date of Service: 02/28/21 Admission Dx/Problem (Free Text): Patient Status Order with Admit Dx/Problem 02/27/21 01:47 Patient Status [ADT] Routine Admission Diagnosis/Problem Admission Diagnosis/Problem UTI, Urinary tract infection in 02/27/21 04:59 Naomy is a 20 yo 103 at 19+1 weeks gestation (MANDEEP(US) 07/23/2021) that presents to ED this evening (02/26/2021) with C/O nausea, fever (Tmax 103F per pt report, treated with Tylenol at home at 3 pm), right flank pain. Reports adequate movement, appropriate for gestation. Denied LOF, uterine pain, yovanny vaginal bleeding. O pos, Ab screen neg, RI, GBS unkown. Pertinent medical history includes: h/o UTI this (Macrobid prescribed 02/09/2021 but not filled per pt report "Well I've got 5 kids to take care of); anxiety; depression; generalized HAs; wisdom teeth removed. NKDA. Medications: PNV daily. CBC, CMP, COVID screen, UA completed in ER. Elevated WBC count, + UA nitrites, bacteria. Anatomy US completed, WNL and unremarkable, FHTs 163-172 bpm. Limited RUQ abdominal US completed, unremarkable and WNL. 4 mg IV morphine given in ER for pain. 3 L IV fluids administered in ER for hypotension but now stable, see VS. 02/27/21 05:06 02/27/21 05:10 Functional Status: Reports: Pain Controlled, Tolerating Diet, Ambulating, Urinating - Review of Systems General: Reports: No Symptoms HEENT: Reports: No Symptoms Pulmonary: Reports: No Symptoms Cardiovascular: Reports: No Symptoms Gastrointestinal: Reports: No Symptoms Genitourinary: Reports: No Symptoms Musculoskeletal: Reports: No Symptoms Skin: Reports: No Symptoms Neurological: Reports: No Symptoms Psychiatric: Reports: No Symptoms - Patient Data Vitals - Most Recent: Last Vital Signs Temp 96.8 F L 02/28/21 08:00 Pulse 77 02/28/21 08:00 Resp 15 02/28/21 08:00 BP 94/45 L 02/28/21 08:00 Pulse Ox 96 02/28/21 08:00 Weight - Most Recent: 144 lb 6.4 oz I&O - Last 24 Hours: Intake & Output 02/27/21 02/28/21 02/28/21 22:59 06:59 14:59 Intake Total 1925 600 Output Total 2100 950 Balance -175 -350 Lab Results Last 24 Hours: Laboratory Results - last 24 hr 02/27/21 02/27/21 02/28/21 Range/Units 15:10 15:10 06:30 WBC 10.29 11.26 H (4.0-11.0) K/uL RBC 3.43 L 3.38 L (4.30-5.90) M/uL Hgb 11.0 L 10.8 L (12.0-16.0) g/dL Hct 31.6 L 31.1 L (36.0-46.0) % MCV 92.1 92.0 (80.0-98.0) fL MCH 32.1 H 32.0 (27.0-32.0) pg MCHC 34.8 34.7 (31.0-37.0) g/dL RDW Std Deviation 42.7 43.6 (28.0-62.0) fl RDW Coeff of Marleny 13 13 (11.0-15.0) % Plt Count 192 177 (150-400) K/uL MPV 10.40 9.70 (7.40-12.00) fL Neut % (Auto) 81.3 H 74.8 (48.0-80.0) % Lymph % (Auto) 9.8 L 13.8 L (16.0-40.0) % [place] % (Auto) 8.7 10.7 (0.0-15.0) % Eos % (Auto) 0.0 0.6 (0.0-7.0) % Baso % (Auto) 0.2 0.1 (0.0-1.5) % Neut # (Auto) 8.4 H 8.4 H (1.4-5.7) K/uL Lymph # (Auto) 1.0 1.6 (0.6-2.4) K/uL [place] # (Auto) 0.9 H 1.2 H (0.0-0.8) K/uL Eos # (Auto) 0.0 0.1 (0.0-0.7) K/uL Baso # (Auto) 0.0 0.0 (0.0-0.1) K/uL Nucleated RBC % 0.0 0.0 /100WBC Nucleated RBCs # 0 0 K/uL Sodium 140 (136-145) mmol/L Potassium 3.7 (3.5-5.1) mmol/L Chloride 105 (98-107) mmol/L Carbon Dioxide 22.7 (21.0-32.0) mmol/L BUN 5 L (7.0-18.0) mg/dL Creatinine 0.6 (0.6-1.0) mg/dL Est Cr Clr Drug Dosing 133.46 mL/min Estimated GFR (MDRD) > 60.0 ml/min Glucose 108 H (74-106) mg/dL Calcium 7.6 L (8.5-10.1) mg/dL Total Bilirubin 0.4 (0.2-1.0) mg/dL AST 20 (15-37) IU/L ALT 20 (14-63) IU/L Alkaline Phosphatase 56 (46-116) U/L Total Protein 5.2 L (6.4-8.2) g/dL Albumin 2.4 L (3.4-5.0) g/dL Globulin 2.8 (2.6-4.0) g/dL Albumin/Globulin Ratio 0.9 (0.9-1.6) 02/28/21 Range/Units 06:30 WBC (4.0-11.0) K/uL RBC (4.30-5.90) M/uL Hgb (12.0-16.0) g/dL Hct (36.0-46.0) % MCV (80.0-98.0) fL MCH (27.0-32.0) pg MCHC (31.0-37.0) g/dL RDW Std Deviation (28.0-62.0) fl RDW Coeff of Marleny (11.0-15.0) % Plt Count (150-400) K/uL MPV (7.40-12.00) fL Neut % (Auto) (48.0-80.0) % Lymph % (Auto) (16.0-40.0) % [place] % (Auto) (0.0-15.0) % Eos % (Auto) (0.0-7.0) % Baso % (Auto) (0.0-1.5) % Neut # (Auto) (1.4-5.7) K/uL Lymph # (Auto) (0.6-2.4) K/uL [place] # (Auto) (0.0-0.8) K/uL Eos # (Auto) (0.0-0.7) K/uL Baso # (Auto) (0.0-0.1) K/uL Nucleated RBC % /100WBC Nucleated RBCs # K/uL Sodium 139 (136-145) mmol/L Potassium 3.3 L (3.5-5.1) mmol/L Chloride 105 (98-107) mmol/L Carbon Dioxide 24.9 (21.0-32.0) mmol/L BUN 2 L (7.0-18.0) mg/dL Creatinine 0.5 L (0.6-1.0) mg/dL Est Cr Clr Drug Dosing 160.15 mL/min Estimated GFR (MDRD) > 60.0 ml/min Glucose 92 (74-106) mg/dL Calcium 7.6 L (8.5-10.1) mg/dL Total Bilirubin 0.4 (0.2-1.0) mg/dL AST 23 (15-37) IU/L ALT 20 (14-63) IU/L Alkaline Phosphatase 49 (46-116) U/L Total Protein 4.8 L (6.4-8.2) g/dL Albumin 2.1 L (3.4-5.0) g/dL Globulin 2.7 (2.6-4.0) g/dL Albumin/Globulin Ratio 0.8 L (0.9-1.6) Abel Results Last 24 Hours: Microbiology 02/27/21 06:10 Aerobic Blood Culture - Preliminary Blood - Venous - Lab Draw NO GROWTH AFTER 1 DAY Anaerobic Blood Culture - Preliminary NO GROWTH AFTER 1 DAY 02/27/21 06:00 Aerobic Blood Culture - Preliminary Blood - Venous NO GROWTH AFTER 1 DAY Anaerobic Blood Culture - Preliminary NO GROWTH AFTER 1 DAY Med Orders - Current: Current Medications Acetaminophen (Acetaminophen 500 Mg Tab) 1,000 mg PO Q6H PRN PRN Reason: Pain/Fever Last Admin: 02/28/21 10:39 Dose: 1,000 mg Documented by: Cefazolin Sodium/Dextrose 1 gm (/ Premix) 50 mls @ 100 mls/hr IV Q6H [facility] Last Admin: 02/28/21 09:32 Dose: 100 mls/hr Documented by: Lactated Ringer's (Ringers, Lactated) 1,000 mls @ 125 mls/hr IV ASDIRECTED [facility] Last Admin: 02/28/21 04:56 Dose: 125 mls/hr Documented by: Morphine Sulfate (Morphine 2 Mg/Ml Syringe) 2 mg IVPUSH Q4H PRN PRN Reason: Pain (severe 7-10) Last Admin: 02/27/21 20:43 Dose: 2 mg Documented by: Ondansetron HCl (Ondansetron 4 Mg/2 Ml Sdv) 4 mg IVPUSH Q6H PRN PRN Reason: Nausea/Vomiting Phenazopyridine HCl (Phenazopyridine 200 Mg Tab) 200 mg PO TIDAC [facility] Last Admin: 02/28/21 10:33 Dose: 200 mg Documented by: Sodium Chloride (Sodium Chloride 0.9% 10 Ml Syringe) 10 ml FLUSH ASDIRECTED PRN PRN Reason: Keep Vein Open Last Admin: 02/27/21 00:49 Dose: 10 ml Documented by: Sodium Chloride (Sodium Chloride 0.9% 2.5 Ml Syringe) 2.5 ml FLUSH ASDIRECTED PRN PRN Reason: Keep Vein Open Last Admin: 02/27/21 00:49 Dose: 2.5 ml Documented by: Discontinued Medications Acetaminophen (Acetaminophen 500 Mg Tab) 1,000 mg PO ONETIME ONE Stop: 02/27/21 01:01 Last Admin: 02/27/21 01:05 Dose: 1,000 mg Documented by: Ceftriaxone Sodium (Ceftriaxone 1 Gm Vial) 1 gm IVPUSH ONETIME ONE Stop: 02/27/21 00:29 Last Admin: 02/27/21 00:42 Dose: Not Given Documented by: Lactated Ringer's (Ringers, Lactated) 1,000 mls @ 999 mls/hr IV .BOLUS ONE Stop: 02/27/21 00:44 Last Admin: 02/26/21 23:59 Dose: 999 mls/hr Documented by: Ceftriaxone Sodium/Dextrose 1 (gm/ Premix) 50 mls @ 100 mls/hr IV ONETIME ONE Stop: 02/27/21 01:10 Last Admin: 02/27/21 00:49 Dose: 100 mls/hr Documented by: Sodium Chloride (Normal Saline) 1,000 mls @ 999 mls/hr IV NOW STA Stop: 02/27/21 01:57 Last Admin: 02/27/21 00:58 Dose: 999 mls/hr Documented by: Sodium Chloride (Normal Saline) 1,000 mls @ 999 mls/hr IV NOW STA Stop: 02/27/21 03:30 Last Admin: 02/27/21 02:32 Dose: 999 mls/hr Documented by: Sodium Chloride (Normal Saline) 1,000 mls @ 999 mls/hr IV NOW STA Stop: 02/27/21 04:15 Last Admin: 02/27/21 03:17 Dose: Not Given Documented by: Lactated Ringer's (Ringers, Lactated) 1,000 mls @ 150 mls/hr IV ASDIRECTED [facility] Last Admin: 02/27/21 03:37 Dose: 150 mls/hr Documented by: Lidocaine HCl (Lidocaine 1% 5 Ml Sdv) Confirm Administered Dose 10 ml .ROUTE .STK-MED ONE Stop: 02/27/21 03:14 Last Admin: 02/27/21 03:56 Dose: Not Given Documented by: Morphine Sulfate (Morphine 4 Mg/Ml Syringe) 4 mg IVPUSH ONETIME ONE Stop: 02/26/21 23:45 Last Admin: 02/26/21 23:59 Dose: 4 mg Documented by: Ondansetron HCl (Ondansetron 4 Mg/2 Ml Sdv) 4 mg IVPUSH ONETIME ONE Stop: 02/26/21 23:45 Last Admin: 02/26/21 23:59 Dose: 4 mg Documented by: Phenazopyridine HCl (Phenazopyridine 200 Mg Tab) 200 mg PO TID [facility] Last Admin: 02/27/21 06:25 Dose: Not Given Documented by: - Exam General: Alert, Oriented, Cooperative, No Acute Distress HEENT: Pupils Equal, Mucous Membr. Moist/[place] Neck: Supple Lungs: Clear to Auscultation, Normal Respiratory Effort Cardiovascular: Regular Rate, Regular Rhythm GI/Abdominal Exam: Normal Bowel Sounds, Soft, Non-Tender, No Organomegaly, No D istention (Female) Exam: Enlarged Uterus (Gravid uterus, FHTs 150 bpm) Back Exam: Full Range of Motion, CVA Tenderness (R) (Mild) Extremities: Normal Inspection, Normal Range of Motion, Non-Tender, No Pedal Edema, Normal Capillary Refill Skin: Warm, Dry, Intact Neurological: No New Focal Deficit Psy/Mental Status: Alert, Normal Affect, Normal Mood - Patient Data Lab Results Last 24 hrs: Laboratory Results - last 24 hr 02/27/21 02/27/21 02/28/21 Range/Units 15:10 15:10 06:30 WBC 10.29 11.26 H (4.0-11.0) K/uL RBC 3.43 L 3.38 L (4.30-5.90) M/uL Hgb 11.0 L 10.8 L (12.0-16.0) g/dL Hct 31.6 L 31.1 L (36.0-46.0) % MCV 92.1 92.0 (80.0-98.0) fL MCH 32.1 H 32.0 (27.0-32.0) pg MCHC 34.8 34.7 (31.0-37.0) g/dL RDW Std Deviation 42.7 43.6 (28.0-62.0) fl RDW Coeff of Marleny 13 13 (11.0-15.0) % Plt Count 192 177 (150-400) K/uL MPV 10.40 9.70 (7.40-12.00) fL Neut % (Auto) 81.3 H 74.8 (48.0-80.0) % Lymph % (Auto) 9.8 L 13.8 L (16.0-40.0) % [place] % (Auto) 8.7 10.7 (0.0-15.0) % Eos % (Auto) 0.0 0.6 (0.0-7.0) % Baso % (Auto) 0.2 0.1 (0.0-1.5) % Neut # (Auto) 8.4 H 8.4 H (1.4-5.7) K/uL Lymph # (Auto) 1.0 1.6 (0.6-2.4) K/uL [place] # (Auto) 0.9 H 1.2 H (0.0-0.8) K/uL Eos # (Auto) 0.0 0.1 (0.0-0.7) K/uL Baso # (Auto) 0.0 0.0 (0.0-0.1) K/uL Nucleated RBC % 0.0 0.0 /100WBC Nucleated RBCs # 0 0 K/uL Sodium 140 (136-145) mmol/L Potassium 3.7 (3.5-5.1) mmol/L Chloride 105 (98-107) mmol/L Carbon Dioxide 22.7 (21.0-32.0) mmol/L BUN 5 L (7.0-18.0) mg/dL Creatinine 0.6 (0.6-1.0) mg/dL Est Cr Clr Drug Dosing 133.46 mL/min Estimated GFR (MDRD) > 60.0 ml/min Glucose 108 H (74-106) mg/dL Calcium 7.6 L (8.5-10.1) mg/dL Total Bilirubin 0.4 (0.2-1.0) mg/dL AST 20 (15-37) IU/L ALT 20 (14-63) IU/L Alkaline Phosphatase 56 (46-116) U/L Total Protein 5.2 L (6.4-8.2) g/dL Albumin 2.4 L (3.4-5.0) g/dL Globulin 2.8 (2.6-4.0) g/dL Albumin/Globulin Ratio 0.9 (0.9-1.6) 02/28/21 Range/Units 06:30 WBC (4.0-11.0) K/uL RBC (4.30-5.90) M/uL Hgb (12.0-16.0) g/dL Hct (36.0-46.0) % MCV (80.0-98.0) fL MCH (27.0-32.0) pg MCHC (31.0-37.0) g/dL RDW Std Deviation (28.0-62.0) fl RDW Coeff of Marleny (11.0-15.0) % Plt Count (150-400) K/uL MPV (7.40-12.00) fL Neut % (Auto) (48.0-80.0) % Lymph % (Auto) (16.0-40.0) % [place] % (Auto) (0.0-15.0) % Eos % (Auto) (0.0-7.0) % Baso % (Auto) (0.0-1.5) % Neut # (Auto) (1.4-5.7) K/uL Lymph # (Auto) (0.6-2.4) K/uL [place] # (Auto) (0.0-0.8) K/uL Eos # (Auto) (0.0-0.7) K/uL Baso # (Auto) (0.0-0.1) K/uL Nucleated RBC % /100WBC Nucleated RBCs # K/uL Sodium 139 (136-145) mmol/L Potassium 3.3 L (3.5-5.1) mmol/L Chloride 105 (98-107) mmol/L Carbon Dioxide 24.9 (21.0-32.0) mmol/L BUN 2 L (7.0-18.0) mg/dL Creatinine 0.5 L (0.6-1.0) mg/dL Est Cr Clr Drug Dosing 160.15 mL/min Estimated GFR (MDRD) > 60.0 ml/min Glucose 92 (74-106) mg/dL Calcium 7.6 L (8.5-10.1) mg/dL Total Bilirubin 0.4 (0.2-1.0) mg/dL AST 23 (15-37) IU/L ALT 20 (14-63) IU/L Alkaline Phosphatase 49 (46-116) U/L Total Protein 4.8 L (6.4-8.2) g/dL Albumin 2.1 L (3.4-5.0) g/dL Globulin 2.7 (2.6-4.0) g/dL Albumin/Globulin Ratio 0.8 L (0.9-1.6) Result Diagrams: 02/28/21 06:30 02/28/21 06:30 Abel Results Last 24 hrs: Microbiology 02/27/21 06:10 Aerobic Blood Culture - Preliminary Blood - Venous - Lab Draw NO GROWTH AFTER 1 DAY Anaerobic Blood Culture - Preliminary NO GROWTH AFTER 1 DAY 02/27/21 06:00 Aerobic Blood Culture - Preliminary Blood - Venous NO GROWTH AFTER 1 DAY Anaerobic Blood Culture - Preliminary NO GROWTH AFTER 1 DAY Sepsis Event Note - Evaluation Sepsis Screening Result: No Definite Risk - Focused Exam Vital Signs: Vital Signs Temp Pulse Resp BP Pulse Ox 02/28/21 08:00 96.8 F L 77 15 94/45 L 96 02/28/21 04:00 96.6 F L 88 16 103/60 95 02/28/21 00:10 98.1 F 105 H 16 106/51 L 95 - Problem List & Annotations (1) Pyelonephritis SNOMED Code(s): 14700502 Code(s): N12 - TUBULO-INTERSTITIAL NEPHRITIS, NOT SPCF ACUTE OR CHRONIC Status: Acute Priority: High Current Visit: Yes (2) Second trimester SNOMED Code(s): 08359286 Code(s): Z34.92 - ENCNTR FOR SUPRVSN OF NORMAL PREG, UNSP, SECOND TRIMESTER Status: Acute Priority: High Current Visit: Yes - Problem List Review Problem List Initiated/Reviewed/Updated: Yes - Plan Plan:: Physical exam unremarkable except mild R CVA tenderness, improved from moderate to severe tenderness 1 day ago. VS now stable, afebrile. Pain well controlled with Pyridium and Tylenol. Dose #6 of (1) gram cefazolin IV q 6 hours completed at 10 am. FHTs 150 BPM. CBC/CMP trends improving, stable for discharge on oral Keflex per Dr. Velásquez's orders. Patient verbalizes readiness for discharge.
--- NOTE | 2021-02-28 11:59 | PCM.DCSUM1 ---
Discharge Summary - Hospital Course Diagnosis: Stroke: No - Discharge Data Discharge Date: 02/28/21 Discharge Disposition: Home, Self-Care 01 Condition: Fair - Referral to Home Health Primary Care Physician: Dandy Velásquez MD - Discharge Diagnosis/Problem(s) (1) Pyelonephritis SNOMED Code(s): 54126989 ICD Code: N12 - TUBULO-INTERSTITIAL NEPHRITIS, NOT SPCF ACUTE OR CHRONIC Status: Acute Priority: High Current Visit: Yes (2) Second trimester SNOMED Code(s): 06754115 ICD Code: Z34.92 - ENCNTR FOR SUPRVSN OF NORMAL PREG, UNSP, SECOND TRIMESTER Status: Acute Priority: High Current Visit: Yes - Patient Instructions Diet: Usual Diet as Tolerated, Drink 8-10+ Glasses/Day, No Alcoholic Beverages Activity: As Tolerated, No Strenuous Activities, Rest and Relax Today Driving: May Drive Today Showering/Bathing: May Shower Notify Provider of: Fever, Increased Pain, Swelling and Redness, Drainage, Nausea and/or Vomiting - Discharge Plan *PRESCRIPTION DRUG MONITORING PROGRAM REVIEWED*: Not Applicable *COPY OF PRESCRIPTION DRUG MONITORING REPORT IN PATIENT MAXIMILIANO: Not Applicable Prescriptions/Med Rec: cephALEXin [Keflex] 500 mg PO Q8H 7 Days #21 cap Home Medications: Home Meds Pnv No.95/Ferrous Fum/Folic AC [ Multivitamin Tablet] 1 each PO DAILY 01/11/21 [History] cephALEXin [Keflex] 500 mg PO Q8H 7 Days #21 cap 02/28/21 [Rx] Oxygen Therapy Mode: Room Air Patient Handouts: Pyelonephritis During Forms: ED Department Discharge Referrals: Dandy Velásquez MD [Primary Care Provider] - - Discharge Summary/Plan Comment DC Time >30 min.: No Total # of Minutes for Discharge Time: Discharge Summary/Plan Comment: Plan to discharge home now. Warning S/Ss, when to call for help discussed. New Rx sent to [facility], [place], [place]. RTO in 5-7 days for F/U, or sooner if problems arise. - Patient Data Vitals - Most Recent: Last Vital Signs Temp 96.8 F L 02/28/21 08:00 Pulse 77 02/28/21 08:00 Resp 15 02/28/21 08:00 BP 94/45 L 02/28/21 08:00 Pulse Ox 96 02/28/21 08:00 Weight - Most Recent: 144 lb 6.4 oz I&O - Last 24 hours: Intake & Output 02/27/21 02/28/21 02/28/21 22:59 06:59 14:59 Intake Total 1925 600 Output Total 2100 950 Balance -175 -350 Lab Results - Last 24 hrs: Laboratory Results - last 24 hr 02/27/21 02/27/21 02/28/21 Range/Units 15:10 15:10 06:30 WBC 10.29 11.26 H (4.0-11.0) K/uL RBC 3.43 L 3.38 L (4.30-5.90) M/uL Hgb 11.0 L 10.8 L (12.0-16.0) g/dL Hct 31.6 L 31.1 L (36.0-46.0) % MCV 92.1 92.0 (80.0-98.0) fL MCH 32.1 H 32.0 (27.0-32.0) pg MCHC 34.8 34.7 (31.0-37.0) g/dL RDW Std Deviation 42.7 43.6 (28.0-62.0) fl RDW Coeff of Marleny 13 13 (11.0-15.0) % Plt Count 192 177 (150-400) K/uL MPV 10.40 9.70 (7.40-12.00) fL Neut % (Auto) 81.3 H 74.8 (48.0-80.0) % Lymph % (Auto) 9.8 L 13.8 L (16.0-40.0) % [place] % (Auto) 8.7 10.7 (0.0-15.0) % Eos % (Auto) 0.0 0.6 (0.0-7.0) % Baso % (Auto) 0.2 0.1 (0.0-1.5) % Neut # (Auto) 8.4 H 8.4 H (1.4-5.7) K/uL Lymph # (Auto) 1.0 1.6 (0.6-2.4) K/uL [place] # (Auto) 0.9 H 1.2 H (0.0-0.8) K/uL Eos # (Auto) 0.0 0.1 (0.0-0.7) K/uL Baso # (Auto) 0.0 0.0 (0.0-0.1) K/uL Nucleated RBC % 0.0 0.0 /100WBC Nucleated RBCs # 0 0 K/uL Sodium 140 (136-145) mmol/L Potassium 3.7 (3.5-5.1) mmol/L Chloride 105 (98-107) mmol/L Carbon Dioxide 22.7 (21.0-32.0) mmol/L BUN 5 L (7.0-18.0) mg/dL Creatinine 0.6 (0.6-1.0) mg/dL Est Cr Clr Drug Dosing 133.46 mL/min Estimated GFR (MDRD) > 60.0 ml/min Glucose 108 H (74-106) mg/dL Calcium 7.6 L (8.5-10.1) mg/dL Total Bilirubin 0.4 (0.2-1.0) mg/dL AST 20 (15-37) IU/L ALT 20 (14-63) IU/L Alkaline Phosphatase 56 (46-116) U/L Total Protein 5.2 L (6.4-8.2) g/dL Albumin 2.4 L (3.4-5.0) g/dL Globulin 2.8 (2.6-4.0) g/dL Albumin/Globulin Ratio 0.9 (0.9-1.6) 02/28/21 Range/Units 06:30 WBC (4.0-11.0) K/uL RBC (4.30-5.90) M/uL Hgb (12.0-16.0) g/dL Hct (36.0-46.0) % MCV (80.0-98.0) fL MCH (27.0-32.0) pg MCHC (31.0-37.0) g/dL RDW Std Deviation (28.0-62.0) fl RDW Coeff of Marleny (11.0-15.0) % Plt Count (150-400) K/uL MPV (7.40-12.00) fL Neut % (Auto) (48.0-80.0) % Lymph % (Auto) (16.0-40.0) % [place] % (Auto) (0.0-15.0) % Eos % (Auto) (0.0-7.0) % Baso % (Auto) (0.0-1.5) % Neut # (Auto) (1.4-5.7) K/uL Lymph # (Auto) (0.6-2.4) K/uL [place] # (Auto) (0.0-0.8) K/uL Eos # (Auto) (0.0-0.7) K/uL Baso # (Auto) (0.0-0.1) K/uL Nucleated RBC % /100WBC Nucleated RBCs # K/uL Sodium 139 (136-145) mmol/L Potassium 3.3 L (3.5-5.1) mmol/L Chloride 105 (98-107) mmol/L Carbon Dioxide 24.9 (21.0-32.0) mmol/L BUN 2 L (7.0-18.0) mg/dL Creatinine 0.5 L (0.6-1.0) mg/dL Est Cr Clr Drug Dosing 160.15 mL/min Estimated GFR (MDRD) > 60.0 ml/min Glucose 92 (74-106) mg/dL Calcium 7.6 L (8.5-10.1) mg/dL Total Bilirubin 0.4 (0.2-1.0) mg/dL AST 23 (15-37) IU/L ALT 20 (14-63) IU/L Alkaline Phosphatase 49 (46-116) U/L Total Protein 4.8 L (6.4-8.2) g/dL Albumin 2.1 L (3.4-5.0) g/dL Globulin 2.7 (2.6-4.0) g/dL Albumin/Globulin Ratio 0.8 L (0.9-1.6) RHONA Results - Last 24 hrs: Microbiology 02/27/21 06:10 Aerobic Blood Culture - Preliminary Blood - Venous - Lab Draw NO GROWTH AFTER 1 DAY Anaerobic Blood Culture - Preliminary NO GROWTH AFTER 1 DAY 02/27/21 06:00 Aerobic Blood Culture - Preliminary Blood - Venous NO GROWTH AFTER 1 DAY Anaerobic Blood Culture - Preliminary NO GROWTH AFTER 1 DAY Med Orders - Current: Current Medications Acetaminophen (Acetaminophen 500 Mg Tab) 1,000 mg PO Q6H PRN PRN Reason: Pain/Fever Last Admin: 02/28/21 10:39 Dose: 1,000 mg Documented by: Cefazolin Sodium/Dextrose 1 gm (/ Premix) 50 mls @ 100 mls/hr IV Q6H REPLACED BY [facility] Last Admin: 02/28/21 09:32 Dose: 100 mls/hr Documented by: Lactated Ringer's (Ringers, Lactated) 1,000 mls @ 125 mls/hr IV ASDIRECTED REPLACED BY [facility] Last Admin: 02/28/21 04:56 Dose: 125 mls/hr Documented by: Morphine Sulfate (Morphine 2 Mg/Ml Syringe) 2 mg IVPUSH Q4H PRN PRN Reason: Pain (severe 7-10) Last Admin: 02/27/21 20:43 Dose: 2 mg Documented by: Ondansetron HCl (Ondansetron 4 Mg/2 Ml Sdv) 4 mg IVPUSH Q6H PRN PRN Reason: Nausea/Vomiting Phenazopyridine HCl (Phenazopyridine 200 Mg Tab) 200 mg PO TIDAC REPLACED BY [facility] Last Admin: 02/28/21 10:33 Dose: 200 mg Documented by: Sodium Chloride (Sodium Chloride 0.9% 10 Ml Syringe) 10 ml FLUSH ASDIRECTED PRN PRN Reason: Keep Vein Open Last Admin: 02/27/21 00:49 Dose: 10 ml Documented by: Sodium Chloride (Sodium Chloride 0.9% 2.5 Ml Syringe) 2.5 ml FLUSH ASDIRECTED PRN PRN Reason: Keep Vein Open Last Admin: 02/27/21 00:49 Dose: 2.5 ml Documented by: Discontinued Medications Acetaminophen (Acetaminophen 500 Mg Tab) 1,000 mg PO ONETIME ONE Stop: 02/27/21 01:01 Last Admin: 02/27/21 01:05 Dose: 1,000 mg Documented by: Ceftriaxone Sodium (Ceftriaxone 1 Gm Vial) 1 gm IVPUSH ONETIME ONE Stop: 02/27/21 00:29 Last Admin: 02/27/21 00:42 Dose: Not Given Documented by: Lactated Ringer's (Ringers, Lactated) 1,000 mls @ 999 mls/hr IV .BOLUS ONE Stop: 02/27/21 00:44 Last Admin: 02/26/21 23:59 Dose: 999 mls/hr Documented by: Ceftriaxone Sodium/Dextrose 1 (gm/ Premix) 50 mls @ 100 mls/hr IV ONETIME ONE Stop: 02/27/21 01:10 Last Admin: 02/27/21 00:49 Dose: 100 mls/hr Documented by: Sodium Chloride (Normal Saline) 1,000 mls @ 999 mls/hr IV NOW STA Stop: 02/27/21 01:57 Last Admin: 02/27/21 00:58 Dose: 999 mls/hr Documented by: Sodium Chloride (Normal Saline) 1,000 mls @ 999 mls/hr IV NOW STA Stop: 02/27/21 03:30 Last Admin: 02/27/21 02:32 Dose: 999 mls/hr Documented by: Sodium Chloride (Normal Saline) 1,000 mls @ 999 mls/hr IV NOW STA Stop: 02/27/21 04:15 Last Admin: 02/27/21 03:17 Dose: Not Given Documented by: Lactated Ringer's (Ringers, Lactated) 1,000 mls @ 150 mls/hr IV ASDIRECTED REPLACED BY [facility] Last Admin: 02/27/21 03:37 Dose: 150 mls/hr Documented by: Lidocaine HCl (Lidocaine 1% 5 Ml Sdv) Confirm Administered Dose 10 ml .ROUTE .STK-MED ONE Stop: 02/27/21 03:14 Last Admin: 02/27/21 03:56 Dose: Not Given Documented by: Morphine Sulfate (Morphine 4 Mg/Ml Syringe) 4 mg IVPUSH ONETIME ONE Stop: 02/26/21 23:45 Last Admin: 02/26/21 23:59 Dose: 4 mg Documented by: Ondansetron HCl (Ondansetron 4 Mg/2 Ml Sdv) 4 mg IVPUSH ONETIME ONE Stop: 02/26/21 23:45 Last Admin: 02/26/21 23:59 Dose: 4 mg Documented by: Phenazopyridine HCl (Phenazopyridine 200 Mg Tab) 200 mg PO TID REPLACED BY [facility] Last Admin: 02/27/21 06:25 Dose: Not Given Documented by:
[2021-02-28 12:08] VITALS: BP 107/59; PULSE 92
== END 2021-02-28 12:43 | disposition home or self-care (01) | DRG 831 ==
LOC: MW.ED 20:39 → MW.MS 02-27 01:47
PROVIDERS: ADMIT Obstetrics & Gynecology; ATTEND Obstetrics & Gynecology
DX: O98.812 Other maternal infectious and parasitic diseases complicating pregnancy, second trimester (principal); A41.9 Sepsis, unspecified organism; O23.02 Infections of kidney in pregnancy, second trimester; Z3A.19 19 weeks gestation of pregnancy; O99.52 Diseases of the respiratory system complicating childbirth; J45.909 Unspecified asthma, uncomplicated
CPT/HCPCS: 36415; 76705; 76705-26; 76805; 76805-26; 80053; 81001; 83605; 83690; 85025; 87040; 96365; 96375; 99285-25; 99291; A9270-GY; J0690; J0696; J2270; J2405; J7030; J7120; U0002

== ENCOUNTER 2021-07-20 00:20 | Inpatient (IN) | payer MEDICAID ==
[2021-07-20] MEDS ORDERED: Carboprost Tromethamine 250 MCG/1 ML Amp IM PRN (00:28)
[2021-07-20] MEDS ORDERED: Tranexamic Acid 1,000 MG in Sodium Chloride 0.9% 100 ML IV PRN (00:28)
[2021-07-20] MEDS ORDERED: Sodium Chloride 0.9% 20 ML SDV IV PRN (00:28)
[2021-07-20] MEDS ORDERED: Terbutaline 1 MG/ML SDV SUBCUT PRN (00:28)
[2021-07-20] MEDS ORDERED: Lidocaine 1% 50 ML MDV INJECT PRN (00:28)
[2021-07-20] MEDS ORDERED: Misoprostol 25 MCG (1/4 of 100 MCG) Tab VAG PRN ×3 (00:28→05:19)
[2021-07-20] MEDS ORDERED: Misoprostol 200 MCG Tab PO PRN (00:28)
[2021-07-20] MEDS ORDERED: Sodium Chloride 0.9% 2.5 ML Syringe FLUSH PRN (00:28)
[2021-07-20] MEDS ORDERED: Methylergonovine 0.2 MG/1 ML Amp IM PRN (00:28)
[2021-07-20] MEDS ORDERED: Sodium Chloride 0.9% 10 ML Syringe FLUSH PRN (00:28)
[2021-07-20] MEDS ORDERED: Water For Irrigation,Sterile 1,000 ML Container IRR PRN (00:28)
[2021-07-20] MEDS ORDERED: Oxytocin/0.9 % Sodium Chloride 30 UNIT/500 ML BAG IV SCH ×2 (00:30)
[2021-07-20] MEDS ORDERED: Misoprostol 25 MCG (1/4 of 100 MCG) Tab PO ONE (00:33)
[2021-07-20] MEDS ORDERED: Ondansetron 4 MG/2 ML SDV IVPUSH PRN (02:09)
[2021-07-20] MEDS ORDERED: Calcium Carbonate 500 MG Tab.Chew PO ONE (02:19)
[2021-07-20] MEDS ORDERED: Misoprostol 25 MCG (1/4 of 100 MCG) Tab PO PRN (05:19)
[2021-07-20] MEDS: Lactated Ringers 1,000 ML IV SCH ×4 (08:09→19:34)
[2021-07-20] MEDS: Butorphanol 1 MG/ML SDV IVPUSH PRN ×2 (09:27→10:29)
[2021-07-20] MEDS ORDERED: Ropivacaine 100 ML ONE (11:55)
[2021-07-20] MEDS ORDERED: ePHEDrine 50 MG/ML SDV IVPUSH PRN ×2 (12:27)
[2021-07-20] MEDS: Ropivacaine 200 MG in Premix Bag 1 BAG EPIDUR SCH ×2 (17:50→22:53)
[2021-07-21] MEDS ORDERED: Bisacodyl 10 MG Supp RECTAL PRN (01:24)
[2021-07-21] MEDS ORDERED: Acetaminophen 500 MG Tab PO PRN ×2 (01:24)
[2021-07-21] MEDS ORDERED: Witch Hazel Medicated Pads 40/Jar TOP PRN (01:24)
[2021-07-21] MEDS ORDERED: oxyCODONE 5 MG Tab PO PRN (01:24)
[2021-07-21] MEDS ORDERED: Ibuprofen 400 MG Tab PO PRN (01:24)
[2021-07-21] MEDS ORDERED: Lanolin 100% Cream 7 GM Tube TOP PRN (01:24)
[2021-07-21] MEDS: Ibuprofen 800 MG Tab PO PRN ×3 (02:07→22:21)
[2021-07-21] MEDS: Benzocaine/Menthol 20%-0.5% Spray 78 GM Cannister TOP PRN (11:50)
[2021-07-21] MEDS: Docusate Sodium 100 MG Cap PO PRN (16:08)
[2021-07-22] MEDS: Docusate Sodium 100 MG Cap PO PRN (12:15)
[2021-07-23] MEDS: Benzocaine/Menthol 20%-0.5% Spray 78 GM Cannister TOP PRN (10:30)
[2021-07-23 13:20] VITALS: BP 138/87; PULSE 68
== END 2021-07-23 10:30 | disposition home or self-care (01) | DRG 807 ==
LOC: MW.OB 00:20 → MW.OBCHECK 00:20 → MW.OB 00:29 → OBSVTOIN 07-21 01:14 → MW.OB 07-21 20:00
PROVIDERS: ADMIT Obstetrics & Gynecology; ATTEND Obstetrics & Gynecology
PROC: 10D07Z6 Extraction of Products of Conception, Vacuum, Via Natural or Artificial Opening (ICD-10-PCS; principal; 2021-07-21)
PROC: 10907ZC Drainage of Amniotic Fluid, Therapeutic from Products of Conception, Via Natural or Artificial Opening (ICD-10-PCS; 2021-07-21)
PROC: 3E0P7VZ Introduction of Hormone into Female Reproductive, Via Natural or Artificial Opening (ICD-10-PCS; 2021-07-21)
PROC: 3E033VJ Introduction of Other Hormone into Peripheral Vein, Percutaneous Approach (ICD-10-PCS; 2021-07-21)
PROC: 3E0R3BZ Introduction of Anesthetic Agent into Spinal Canal, Percutaneous Approach (ICD-10-PCS; 2021-07-21)
PROC: 00HU33Z Insertion of Infusion Device into Spinal Canal, Percutaneous Approach (ICD-10-PCS; 2021-07-21)
DX: O80 Encounter for full-term uncomplicated delivery (principal); Z37.0 Single live birth; Z3A.39 39 weeks gestation of pregnancy; Z20.822 Contact with and (suspected) exposure to COVID-19
CPT/HCPCS: 01967; 36415; 51702; 59025; 59409; 85014; 85018; 85027; 86592; 86850; 86900; 86901; A9270-GY; J0595; J2590; J2795; J7120; U0002

== ENCOUNTER 2022-08-08 08:01 | Emergency (ER) | payer MEDICAID ==
[2022-08-08] MEDS ORDERED: Sodium Chloride 0.9% 1,000 ML IV ONE ×2 (08:35→10:51)
[2022-08-08] MEDS ORDERED: Morphine 4 MG/ML Syringe IVPUSH ONE (08:40)
[2022-08-08] MEDS ORDERED: Ondansetron 4 MG/2 ML SDV IVPUSH ONE (08:41)
[2022-08-08 09:32] LABS: CARBON DIOXIDE,CO2 19.8 mmol/L (21.0-32.0)
[2022-08-08] MEDS ORDERED: Iopamidol 755 MG/ML 500 ML Multipack Bottle IVPUSH STA (10:13)
[2022-08-08] MEDS ORDERED: cefTRIAXone 1 GM in Sodium Chloride 0.9% 50 ML IV ONE ×2 (10:41→11:15)
[2022-08-08 17:38] VITALS: BP 97/61; PULSE 77
== END 2022-08-08 12:34 | disposition home or self-care (01) ==
LOC: MW.ED 08:01
DX: K52.9 Noninfective gastroenteritis and colitis, unspecified (principal); N39.0 Urinary tract infection, site not specified
CPT/HCPCS: 36415; 74177; 80053; 81001; 81025; 83735; 85025; 96361; 96365; 96375; 99284; J0696; J2270; J2405; J7030; J7050; Q9967

== ENCOUNTER 2023-02-27 09:10 | Emergency (ER) | payer SELFPAY ==
[2023-02-27 10:08] LABS: APPEARANCE,URINE SLT CLOUDY; BILIRUBIN,URINE NEGATIVE (NEGATIVE); COLOR,URINE YELLOW; GLUCOSE,URINE NEGATIVE (NEGATIVE); KETONES,URINE NEGATIVE (NEGATIVE); LEUKOCYTE ESTERASE,URINE SMALL (NEGATIVE); NITRITE,URINE POSITIVE (NEGATIVE); OCCULT BLOOD,URINE NEGATIVE (NEGATIVE); PROTEIN,URINE NEGATIVE (NEGATIVE)
[2023-02-27 10:08] LABS: CORONAVIRUS COVID-19 NAA NEGATIVE (NEGATIVE); INFLUENZA A NAA NEGATIVE (NEGATIVE); INFLUENZA B NAA NEGATIVE (NEGATIVE)
[2023-02-27 10:19] LABS: BACTERIA,URINE FEW (NEGATIVE); EPITHELIAL CELLS,URINE MODERATE (NONE-FEW); RBC,URINE 0-3 (0-2/HPF); WBC,URINE 20-30 (0-5/HPF)
[2023-02-27 11:07] VITALS: BP 111/54; PULSE 89
== END 2023-02-27 11:05 | disposition home or self-care (01) ==
LOC: MW.ED 09:10
DX: N39.0 Urinary tract infection, site not specified (principal); J02.9 Acute pharyngitis, unspecified; Z20.822 Contact with and (suspected) exposure to COVID-19
CPT/HCPCS: 0240U; 71045; 81001; 81025; 87651; 93005; 99284; 93010; 99283

== ENCOUNTER 2023-04-21 16:18 | Emergency (ER) | payer BC ==
[2023-04-21 17:13] LABS: APPEARANCE,URINE CLEAR; BILIRUBIN,URINE NEGATIVE (NEGATIVE); COLOR,URINE YELLOW; GLUCOSE,URINE NEGATIVE (NEGATIVE); KETONES,URINE 40 mg/dL (NEGATIVE); LEUKOCYTE ESTERASE,URINE NEGATIVE (NEGATIVE); NITRITE,URINE NEGATIVE (NEGATIVE); OCCULT BLOOD,URINE NEGATIVE (NEGATIVE); PROTEIN,URINE NEGATIVE (NEGATIVE)
[2023-04-21 18:02] LABS: CORONAVIRUS COVID-19 NAA POSITIVE (NEGATIVE); INFLUENZA A NAA NEGATIVE (NEGATIVE); INFLUENZA B NAA NEGATIVE (NEGATIVE)
[2023-04-21 18:13] VITALS: BP 135/112; PULSE 126
[2023-04-21 19:07] LABS: CANDIDA DNA PROBE NEGATIVE (NEGATIVE); GARDNERELLA DNA PROBE POSITIVE (NEGATIVE); TRICHOMONAS DNA PROBE NEGATIVE (NEGATIVE)
[2023-04-21 19:43] LABS: C. TRACHOMATIS BY PCR NOT DETECTED; N. GONORRHOEAE BY PCR NOT DETECTED
== END 2023-04-21 18:14 | disposition home or self-care (01) ==
LOC: MW.ED 16:18
DX: J02.9 Acute pharyngitis, unspecified (principal); Z20.822 Contact with and (suspected) exposure to COVID-19; R50.9 Fever, unspecified; R39.89 Other symptoms and signs involving the genitourinary system; R11.0 Nausea; Z75.8 Other problems related to medical facilities and other health care
CPT/HCPCS: 0240U; 81003; 81025; 87480; 87491; 87510; 87591; 87660; 99283

== ENCOUNTER 2023-07-01 10:05 | Emergency (ER) | payer SELFPAY ==
[2023-07-01] MEDS: Sodium Chloride 0.9% 1,000 ML IV ONE (11:03)
[2023-07-01] MEDS: Metoclopramide 10 MG/2 ML SDV IVPUSH ONE (11:03)
[2023-07-01] MEDS: Ketorolac 30 MG/ML SDV IVPUSH ONE (11:03)
[2023-07-01] MEDS: diphenhydrAMINE 50 MG/ML SDV IVPUSH ONE (11:03)
[2023-07-01 12:06] VITALS: BP 99/52; PULSE 99
== END 2023-07-01 12:08 | disposition home or self-care (01) ==
LOC: MW.ED 10:05
DX: R51.9 Headache, unspecified (principal)
CPT/HCPCS: 96361; 96374; 96375; 99283; J1200; J1885; J2765; J7030; 99284